=== PATIENT | male | born 1960 | race Caucasian/White ===

== ENCOUNTER 2020-11-30 18:27 | Inpatient (IN) | payer MEDICARE, OTHER ==
[~2020-11-30] VITALS: Ht 180.3 cm; Wt 155.2 kg
[2020-11-30] MEDS ORDERED: dilTIAZem 25 MG/5 ML VIAL IV ONE ×2 (19:00→19:45)
[2020-11-30 19:15] LABS: Basophils # (auto) 0 10 ^3/uL (0-0.2); Basophils % (auto) 0.1 % (0.0-2.0); Eosinophils # (auto) 0 10 ^3/uL (0-0.8); Hematocrit 36.3 % (41.0-53.0); Hemoglobin 11.9 g/dL (13.5-17.5); Lymphocytes # (auto) 0.8 10 ^3/uL (0.4-5.4); Lymphocytes % (auto) 5.2 % (10.0-50.0); Mean Corpuscular Hemoglobin 28.9 pg (28.0-32.0); Mean Corpuscular Hgb Conc. 32.8 g/dL (32.0-36.0); Mean Corpuscular Volume 88.1 fL (80.0-100.0); Monocytes # (auto) 1.7 10 ^3/uL (0-1.3); Monocytes % (auto) 10.7 % (0.0-12.0); Neutrophils # (auto) 13.4 10 ^3/uL (1.6-8.6); Red Blood Cells 4.12 10^6/uL (4.5-5.90); Red Cell Distribution Width 15.7 % (11.8-14.3); White Blood Cell 15.9 10^3/uL (4.4-10.8)
[2020-11-30 19:35] LABS: Albumin 2.7 g/dL (3.4-5.0); BUN/Creatinine Ratio 11.8; Calcium 8.9 mg/dL (8.5-10.1); Potassium 3.2 mmol/L (3.5-5.1)
[2020-11-30 19:40] LABS: Bilirubin, Total 0.6 mg/dL (0.2-1.0); Lactic Acid w/Reflex 2.1 mmol/L (0.4-2.0); Total Protein 8.2 g/dL (6.4-8.2)
[2020-11-30 20:23] LABS: INR 1.44 (0.9-1.15); Partial Thromboplastin Time 39.6 sec (23.6-33.0)
[2020-11-30] MEDS ORDERED: levoFLOXacin 500MG 100 ML IV ONE (20:30)
[2020-11-30] MEDS ORDERED: SODIUM CHLORIDE 0.9% 3,000 ML IV ONE (20:30)
[2020-11-30] MEDS ORDERED: IOHEXOL 350 MG/ML 100ML IJ ONE (20:58)
[2020-11-30] MEDS ORDERED: AMIODARONE 450mg/250ml AE 250 ML IV ONE (21:00)
[2020-11-30] MEDS ORDERED: ACETAMINOPHEN 500 MG TAB PO ONE (21:00)
[2020-11-30] MEDS ORDERED: AMIODARONE HCL (50 MG/ ML) 3 ML VIAL IV ONE (21:07)
[2020-11-30] MEDS ORDERED: AMIODARONE HCL 150 MG in D5W 5% 100 ML IV ONE (21:15)
[2020-11-30] MEDS ORDERED: AMIODARONE 450mg/250ml AE 250 ML IV SCH (21:15)
[2020-11-30] MEDS: POTASSIUM CHL 20MEQ/100ML 100 ML IV SCH (22:23)
[2020-11-30] MEDS ORDERED: FUROSEMIDE 40 MG/4 ML VIAL IV ONE (23:30)
[2020-11-30] MEDS ORDERED: MORPHINE SULFATE 4 MG/ML SYR/VIAL IV PRN (23:30)
[2020-11-30] MEDS ORDERED: ONDANSETRON HCL 4 MG/2 ML VIAL IV PRN (23:30)
[2020-11-30] MEDS ORDERED: DEXTROSE (50%) 50ML SYRG IV PRN (23:30)
[2020-11-30] MEDS ORDERED: ALBUMIN 25% 50 ML IV ONE (23:30)
[2020-11-30] MEDS ORDERED: NITROGLYCERIN 0.4 MG SL TAB SL PRN (23:30)
[2020-11-30] MEDS ORDERED: DOCUSATE SOD 100 MG CAP PO PRN (23:30)
[2020-11-30] MEDS ORDERED: MORPHINE SULFATE INJECTION 2 MG/ML SYRG IV PRN (23:30)
[2020-11-30] MEDS ORDERED: HYDROcodone-ACET 5/325MG TAB PO PRN (23:30)
[2020-12-01] MEDS: POTASSIUM CHL 20MEQ/100ML 100 ML IV SCH (00:17)
[2020-12-01] MEDS ORDERED: SODIUM CHL 3% 500 ML IV ONE (02:15)
[2020-12-01 02:45] VITALS: BP 108/51
[2020-12-01] MEDS ORDERED: SODIUM BICARBONATE 8.4 % INJ 50ML VIAL IV ONE (02:45)
[2020-12-01 03:04] VITALS: BP 108/51
[2020-12-01] MEDS: AMIODARONE 450mg/250ml AE 250 ML IV SCH ×2 (03:22→20:25)
[2020-12-01 03:46] VITALS: BP 101/66
[2020-12-01 04:08] LABS: Albumin 2.4 g/dL (3.4-5.0); Potassium 3.8 mmol/L (3.5-5.1)
[2020-12-01 04:14] LABS: Urine Bacteria MOD /hpf (None Seen); Urine Blood 2+ /uL (Negative); Urine Hyaline Cast FEW /lpf (0 - 2); Urine Mucus FEW (None Seen); Urine Specific Gravity 1.029 (1.001-1.035); Urine WBC 72 /hpf (0 - 3)
[2020-12-01 04:15] LABS: BUN/Creatinine Ratio 13.2; Bilirubin, Total 0.6 mg/dL (0.2-1.0); Calcium 8.1 mg/dL (8.5-10.1); Total Protein 7.4 g/dL (6.4-8.2)
[2020-12-01] MEDS ORDERED: ALBUMIN 25% 50 ML IV ONE (06:00)
[2020-12-01] MEDS ORDERED: ALBUTEROL SULF HFA 90MCG INH 200DOSE IN SCH (06:00)
[2020-12-01 06:26] VITALS: BP 108/68
[2020-12-01] MEDS: ACCU-CHEK COMFORT CURVE STRIP VI SCH ×4 (06:46→22:31)
[2020-12-01] MEDS: InsuLIN REG 1unit/0.01ml Soln (100units/ml) SC SCH ×4 (06:47→22:33)
[2020-12-01] MEDS: SODIUM CHLOR 0.9% PF (SALINE LOCK) 10ML VIAL/SYR IV SCH ×3 (06:47→22:18)
[2020-12-01 08:18] LABS: Basophils # (auto) 0 10 ^3/uL (0-0.2); Basophils % (auto) 0.2 % (0.0-2.0); Eosinophils # (auto) 0 10 ^3/uL (0-0.8); Hematocrit 34.6 % (41.0-53.0); Hemoglobin 11.4 g/dL (13.5-17.5); Lymphocytes # (auto) 0.4 10 ^3/uL (0.4-5.4); Lymphocytes % (auto) 3.5 % (10.0-50.0); Mean Corpuscular Hemoglobin 28.8 pg (28.0-32.0); Mean Corpuscular Hgb Conc. 32.9 g/dL (32.0-36.0); Mean Corpuscular Volume 87.6 fL (80.0-100.0); Monocytes # (auto) 0.7 10 ^3/uL (0-1.3); Monocytes % (auto) 6.2 % (0.0-12.0); Neutrophils # (auto) 10.5 10 ^3/uL (1.6-8.6); Neutrophils % (auto) 90.1 % (37.0-80.0); Red Blood Cells 3.95 10^6/uL (4.5-5.90); Red Cell Distribution Width 15.4 % (11.8-14.3); White Blood Cell 11.6 10^3/uL (4.4-10.8)
[2020-12-01 08:47] LABS: INR 1.54 (0.9-1.15)
[2020-12-01] MEDS: cefTRIAXone 1GM/50ML D5W 50 ML IV SCH (09:16)
[2020-12-01] MEDS ORDERED: ALBUTEROL SULF HFA 90MCG INH 200DOSE IN PRN (09:45)
[2020-12-01] MEDS: FAMOTIDINE (10MG/ML) 2ML VL IV SCH ×2 (10:44→22:10)
[2020-12-01] MEDS: ASPirin 81 mg TAB PO SCH (10:44)
[2020-12-01] MEDS: AZITHROMYCIN 500MG/ 250ML 250 ML IV SCH (10:44)
[2020-12-01] MEDS: POTASSIUM CHL 20 Meq TABLET PO SCH (10:45)
[2020-12-01] MEDS: ZINC SULFATE 220mg CAP or TAB PO SCH (10:45)
[2020-12-01] MEDS: MULTIPLE VITAMIN TAB PO SCH (10:46)
[2020-12-01] MEDS: FUROSEMIDE 40 MG/4 ML VIAL IV SCH (10:46)
[2020-12-01] MEDS: ASCORBIC ACID 500 MG TAB PO SCH ×2 (10:46→22:18)
[2020-12-01] MEDS ORDERED: DIGOXIN (250MCG/ML) 2 ML AMPULE IV ONE (11:00)
[2020-12-01] MEDS ORDERED: ENOXAPARIN SOD 150 MG/1 ML SYRINGE SC ONE (11:00)
[2020-12-01] MEDS ORDERED: WARFARIN SODIUM 10 MG TAB PO ONE (17:00)
[2020-12-01] MEDS: ACETAMINOPHEN 325 MG TAB PO PRN (20:53)
[2020-12-01] MEDS: ENOXAPARIN SOD 150 MG/1 ML SYRINGE SC SCH (22:10)
[2020-12-01 23:25] VITALS: BP 93/35
[2020-12-02 03:08] VITALS: BP 117/80
[2020-12-02 06:02] LABS: Basophils # (auto) 0 10 ^3/uL (0-0.2); Basophils % (auto) 0.3 % (0.0-2.0); Eosinophils # (auto) 0 10 ^3/uL (0-0.8); Eosinophils % (auto) 0.2 % (0.0-7.0); Hematocrit 32.2 % (41.0-53.0); Hemoglobin 10.9 g/dL (13.5-17.5); Lymphocytes # (auto) 0.4 10 ^3/uL (0.4-5.4); Lymphocytes % (auto) 5.4 % (10.0-50.0); Mean Corpuscular Hemoglobin 29.4 pg (28.0-32.0); Mean Corpuscular Hgb Conc. 33.7 g/dL (32.0-36.0); Mean Corpuscular Volume 87.2 fL (80.0-100.0); Monocytes # (auto) 0.7 10 ^3/uL (0-1.3); Monocytes % (auto) 8.6 % (0.0-12.0); Neutrophils % (auto) 85.5 % (37.0-80.0); Nucleated Red Blood Cells % 0.1 %; White Blood Cell 8.2 10^3/uL (4.4-10.8)
[2020-12-02] MEDS: SODIUM CHLOR 0.9% PF (SALINE LOCK) 10ML VIAL/SYR IV SCH ×3 (06:19→21:30)
[2020-12-02 06:20] LABS: INR 1.91 (0.9-1.15)
[2020-12-02 06:21] LABS: Potassium 3.4 mmol/L (3.5-5.1)
[2020-12-02 06:33] LABS: Albumin 2.5 g/dL (3.4-5.0); BUN/Creatinine Ratio 18.1; Bilirubin, Total 0.5 mg/dL (0.2-1.0); Calcium 9.4 mg/dL (8.5-10.1); Magnesium 2.4 mg/dL (1.6-2.6); Total Protein 7.5 g/dL (6.4-8.2)
[2020-12-02] MEDS: InsuLIN REG 1unit/0.01ml Soln (100units/ml) SC SCH ×4 (07:00→21:38)
[2020-12-02] MEDS: ACCU-CHEK COMFORT CURVE STRIP VI SCH ×4 (07:13→21:30)
[2020-12-02] MEDS: cefTRIAXone 1GM/50ML D5W 50 ML IV SCH (09:39)
[2020-12-02] MEDS: AMIODARONE 450mg/250ml AE 250 ML IV SCH ×3 (09:41→23:17)
[2020-12-02] MEDS: FAMOTIDINE (10MG/ML) 2ML VL IV SCH ×2 (10:01→21:30)
[2020-12-02] MEDS: FUROSEMIDE 40 MG/4 ML VIAL IV SCH ×2 (10:01→17:55)
[2020-12-02] MEDS: POTASSIUM CHL 20 Meq TABLET PO SCH (10:02)
[2020-12-02] MEDS: MULTIPLE VITAMIN TAB PO SCH (10:02)
[2020-12-02] MEDS: ZINC SULFATE 220mg CAP or TAB PO SCH (10:02)
[2020-12-02] MEDS: ASPirin 81 mg TAB PO SCH (10:02)
[2020-12-02] MEDS: ASCORBIC ACID 500 MG TAB PO SCH (10:02)
[2020-12-02] MEDS: ENOXAPARIN SOD 150 MG/1 ML SYRINGE SC SCH ×2 (10:02→21:30)
[2020-12-02] MEDS: AZITHROMYCIN 500MG/ 250ML 250 ML IV SCH (10:14)
[2020-12-02] MEDS ORDERED: POTASSIUM CHL 20 Meq TABLET PO ONE (10:30)
[2020-12-02] MEDS ORDERED: DIGOXIN (250MCG/ML) 2 ML AMPULE IV ONE (10:30)
[2020-12-02] MEDS ORDERED: AMIODARONE 450mg/250ml AE 250 ML IV SCH (14:00)
[2020-12-02] MEDS: ACETAMINOPHEN 325 MG TAB PO PRN (16:14)
[2020-12-02 17:37] VITALS: BP 129/75
[2020-12-02] MEDS ORDERED: SERT50TA19 PO (18:03)
[2020-12-02] MEDS ORDERED: AMIO200T4 PO (18:03)
[2020-12-02] MEDS ORDERED: ROSU1TAB15 PO (18:03)
[2020-12-02] MEDS ORDERED: WARF6TAB21 PO (18:03)
[2020-12-02] MEDS ORDERED: TORS20TA19 PO (18:03)
[2020-12-02] MEDS ORDERED: CHOL200031 PO (18:08)
[2020-12-02] MEDS ORDERED: ASPI81CH59 PO (18:08)
[2020-12-02] MEDS ORDERED: MECL12.514 PO (18:08)
[2020-12-02] MEDS ORDERED: LORA0.5T20 PO (18:08)
[2020-12-02] MEDS ORDERED: NITR0.4S29 SL (18:08)
[2020-12-02] MEDS ORDERED: CYAN-17 PO (18:11)
[2020-12-02] MEDS ORDERED: BECL80AE11 IN (18:11)
[2020-12-02] MEDS ORDERED: METF-370 PO (18:11)
[2020-12-02] MEDS ORDERED: ASCO500T11 PO (18:11)
[2020-12-02 22:21] VITALS: BP 129/76
[2020-12-03 05:14] VITALS: BP 110/73
[2020-12-03 05:26] LABS: Basophils # (auto) 0 10 ^3/uL (0-0.2); Basophils % (auto) 0.6 % (0.0-2.0); Eosinophils # (auto) 0.1 10 ^3/uL (0-0.8); Eosinophils % (auto) 1.1 % (0.0-7.0); Hematocrit 32.9 % (41.0-53.0); Hemoglobin 11.3 g/dL (13.5-17.5); Lymphocytes # (auto) 0.6 10 ^3/uL (0.4-5.4); Lymphocytes % (auto) 8.5 % (10.0-50.0); Mean Corpuscular Hemoglobin 29.8 pg (28.0-32.0); Mean Corpuscular Hgb Conc. 34.5 g/dL (32.0-36.0); Mean Corpuscular Volume 86.4 fL (80.0-100.0); Monocytes # (auto) 0.7 10 ^3/uL (0-1.3); Monocytes % (auto) 8.9 % (0.0-12.0); Neutrophils % (auto) 80.9 % (37.0-80.0); Nucleated Red Blood Cells % 0.1 %; Red Blood Cells 3.81 10^6/uL (4.5-5.90); Red Cell Distribution Width 15.7 % (11.8-14.3); White Blood Cell 7.5 10^3/uL (4.4-10.8)
[2020-12-03 05:46] LABS: Albumin 2.4 g/dL (3.4-5.0); Magnesium 2.4 mg/dL (1.6-2.6); Potassium 3.3 mmol/L (3.5-5.1)
[2020-12-03 05:51] LABS: Bilirubin, Total 0.6 mg/dL (0.2-1.0); Total Protein 7.6 g/dL (6.4-8.2)
[2020-12-03] MEDS: ACCU-CHEK COMFORT CURVE STRIP VI SCH ×4 (06:38→21:28)
[2020-12-03] MEDS: SODIUM CHLOR 0.9% PF (SALINE LOCK) 10ML VIAL/SYR IV SCH ×3 (06:38→21:27)
[2020-12-03] MEDS: FUROSEMIDE 40 MG/4 ML VIAL IV SCH ×2 (06:39→17:34)
[2020-12-03] MEDS: InsuLIN REG 1unit/0.01ml Soln (100units/ml) SC SCH ×4 (06:47→21:32)
[2020-12-03 09:00] VITALS: BP 136/78
[2020-12-03] MEDS: AMIODARONE 450mg/250ml AE 250 ML IV SCH ×2 (09:23→13:00)
[2020-12-03] MEDS: ENOXAPARIN SOD 150 MG/1 ML SYRINGE SC SCH ×2 (09:49→21:27)
[2020-12-03] MEDS: POTASSIUM CHL 20 Meq TABLET PO SCH (09:49)
[2020-12-03] MEDS: ASPirin 81 mg TAB PO SCH (09:49)
[2020-12-03] MEDS: FAMOTIDINE (10MG/ML) 2ML VL IV SCH ×2 (09:49→21:26)
[2020-12-03] MEDS: MULTIPLE VITAMIN TAB PO SCH (09:49)
[2020-12-03] MEDS: cefTRIAXone 1GM/50ML D5W 50 ML IV SCH (09:49)
[2020-12-03] MEDS: AZITHROMYCIN 500MG/ 250ML 250 ML IV SCH (11:04)
[2020-12-03] MEDS ORDERED: POTASSIUM CHL 20 Meq TABLET PO ONE (11:45)
[2020-12-03 13:00] VITALS: BP 136/78
[2020-12-03 17:00] VITALS: BP 122/71
[2020-12-03] MEDS: AMIODARONE HCL 200 MG TAB PO SCH (21:27)
[2020-12-03 22:00] VITALS: BP 115/58
[2020-12-04 05:00] VITALS: BP 115/76
[2020-12-04 05:30] LABS: Basophils # (auto) 0.1 10 ^3/uL (0-0.2); Basophils % (auto) 0.8 % (0.0-2.0); Eosinophils # (auto) 0.1 10 ^3/uL (0-0.8); Eosinophils % (auto) 1.6 % (0.0-7.0); Hemoglobin 10.9 g/dL (13.5-17.5); Lymphocytes # (auto) 0.7 10 ^3/uL (0.4-5.4); Lymphocytes % (auto) 10.1 % (10.0-50.0); Mean Corpuscular Hemoglobin 29.7 pg (28.0-32.0); Mean Corpuscular Hgb Conc. 34.1 g/dL (32.0-36.0); Mean Corpuscular Volume 87.2 fL (80.0-100.0); Monocytes # (auto) 0.5 10 ^3/uL (0-1.3); Monocytes % (auto) 6.6 % (0.0-12.0); Neutrophils # (auto) 5.8 10 ^3/uL (1.6-8.6); Neutrophils % (auto) 80.9 % (37.0-80.0); Nucleated Red Blood Cells % 0.1 %; Red Blood Cells 3.67 10^6/uL (4.5-5.90); Red Cell Distribution Width 15.8 % (11.8-14.3); White Blood Cell 7.1 10^3/uL (4.4-10.8)
[2020-12-04 05:53] LABS: Albumin 2.3 g/dL (3.4-5.0); Calcium 9.1 mg/dL (8.5-10.1); Potassium 3.3 mmol/L (3.5-5.1)
[2020-12-04 05:57] LABS: BUN/Creatinine Ratio 27.2; Bilirubin, Total 0.4 mg/dL (0.2-1.0); Total Protein 7.2 g/dL (6.4-8.2)
[2020-12-04] MEDS: SODIUM CHLOR 0.9% PF (SALINE LOCK) 10ML VIAL/SYR IV SCH ×3 (06:12→22:10)
[2020-12-04] MEDS: FUROSEMIDE 40 MG/4 ML VIAL IV SCH (06:13)
[2020-12-04] MEDS: ACCU-CHEK COMFORT CURVE STRIP VI SCH ×4 (06:19→22:10)
[2020-12-04] MEDS: InsuLIN REG 1unit/0.01ml Soln (100units/ml) SC SCH ×4 (06:25→22:11)
[2020-12-04 08:00] VITALS: BP 115/76
[2020-12-04] MEDS: cefTRIAXone 1GM/50ML D5W 50 ML IV SCH (08:53)
[2020-12-04 09:00] VITALS: BP 105/69
[2020-12-04] MEDS: FAMOTIDINE (10MG/ML) 2ML VL IV SCH ×2 (09:03→22:10)
[2020-12-04] MEDS: AZITHROMYCIN 500MG/ 250ML 250 ML IV SCH (09:04)
[2020-12-04] MEDS: ASPirin 81 mg TAB PO SCH (09:04)
[2020-12-04] MEDS: POTASSIUM CHL 20 Meq TABLET PO SCH (09:05)
[2020-12-04] MEDS: ENOXAPARIN SOD 150 MG/1 ML SYRINGE SC SCH ×2 (09:05→22:10)
[2020-12-04] MEDS: AMIODARONE HCL 200 MG TAB PO SCH ×2 (09:05→17:15)
[2020-12-04] MEDS: MULTIPLE VITAMIN TAB PO SCH (09:05)
[2020-12-04 13:00] VITALS: BP 106/63
[2020-12-04] MEDS ORDERED: POTASSIUM CHL 20 Meq TABLET PO ONE (13:45)
[2020-12-04 17:00] VITALS: BP 102/58
[2020-12-04 22:00] VITALS: BP 125/70
[2020-12-05 04:48] VITALS: BP 123/70
[2020-12-05] MEDS: SODIUM CHLOR 0.9% PF (SALINE LOCK) 10ML VIAL/SYR IV SCH ×3 (05:21→21:22)
[2020-12-05 06:17] LABS: BUN/Creatinine Ratio 32.1; Calcium 8.8 mg/dL (8.5-10.1); Potassium 4.1 mmol/L (3.5-5.1)
[2020-12-05] MEDS: InsuLIN REG 1unit/0.01ml Soln (100units/ml) SC SCH ×4 (06:54→21:43)
[2020-12-05] MEDS: ACCU-CHEK COMFORT CURVE STRIP VI SCH ×4 (06:56→21:22)
[2020-12-05 09:00] VITALS: BP 127/65
[2020-12-05] MEDS: FAMOTIDINE (10MG/ML) 2ML VL IV SCH ×2 (09:38→21:22)
[2020-12-05] MEDS: FUROSEMIDE 40 MG/4 ML VIAL IV SCH (09:38)
[2020-12-05] MEDS: ASPirin 81 mg TAB PO SCH (09:38)
[2020-12-05] MEDS: cefTRIAXone 1GM/50ML D5W 50 ML IV SCH (09:38)
[2020-12-05] MEDS: AMIODARONE HCL 200 MG TAB PO SCH (09:39)
[2020-12-05] MEDS: ENOXAPARIN SOD 150 MG/1 ML SYRINGE SC SCH ×2 (09:39→21:22)
[2020-12-05] MEDS: MULTIPLE VITAMIN TAB PO SCH (09:39)
[2020-12-05] MEDS: POTASSIUM CHL 20 Meq TABLET PO SCH (09:39)
[2020-12-05] MEDS: AZITHROMYCIN 500MG/ 250ML 250 ML IV SCH (10:10)
[2020-12-05 13:00] VITALS: BP 115/66
[2020-12-05 17:00] VITALS: BP 127/76
[2020-12-05 22:00] VITALS: BP 121/66
[2020-12-06 05:00] VITALS: BP 113/58
[2020-12-06 06:03] LABS: Basophils # (auto) 0.1 10 ^3/uL (0-0.2); Basophils % (auto) 0.9 % (0.0-2.0); Eosinophils # (auto) 0.1 10 ^3/uL (0-0.8); Eosinophils % (auto) 1.4 % (0.0-7.0); Hemoglobin 11.5 g/dL (13.5-17.5); Lymphocytes # (auto) 1.2 10 ^3/uL (0.4-5.4); Lymphocytes % (auto) 14.4 % (10.0-50.0); Mean Corpuscular Hemoglobin 30.3 pg (28.0-32.0); Mean Corpuscular Hgb Conc. 34.9 g/dL (32.0-36.0); Mean Corpuscular Volume 86.9 fL (80.0-100.0); Monocytes # (auto) 0.5 10 ^3/uL (0-1.3); Monocytes % (auto) 6.4 % (0.0-12.0); Neutrophils # (auto) 6.2 10 ^3/uL (1.6-8.6); Neutrophils % (auto) 76.9 % (37.0-80.0); Nucleated Red Blood Cells % 0.1 %; Red Cell Distribution Width 15.3 % (11.8-14.3); White Blood Cell 8.1 10^3/uL (4.4-10.8)
[2020-12-06] MEDS: ACCU-CHEK COMFORT CURVE STRIP VI SCH ×4 (06:18→21:19)
[2020-12-06] MEDS: SODIUM CHLOR 0.9% PF (SALINE LOCK) 10ML VIAL/SYR IV SCH ×3 (06:19→21:19)
[2020-12-06] MEDS: InsuLIN REG 1unit/0.01ml Soln (100units/ml) SC SCH ×4 (06:20→21:34)
[2020-12-06 06:34] LABS: BUN/Creatinine Ratio 28.9; Calcium 9.4 mg/dL (8.5-10.1); Potassium 3.5 mmol/L (3.5-5.1)
[2020-12-06 09:00] VITALS: BP 95/62
[2020-12-06] MEDS: cefTRIAXone 1GM/50ML D5W 50 ML IV SCH (09:44)
[2020-12-06] MEDS: ASPirin 81 mg TAB PO SCH (09:44)
[2020-12-06] MEDS: FAMOTIDINE (10MG/ML) 2ML VL IV SCH ×2 (09:44→21:19)
[2020-12-06] MEDS: AMIODARONE HCL 200 MG TAB PO SCH (09:44)
[2020-12-06] MEDS: ENOXAPARIN SOD 150 MG/1 ML SYRINGE SC SCH ×2 (09:45→21:19)
[2020-12-06] MEDS: POTASSIUM CHL 20 Meq TABLET PO SCH (09:45)
[2020-12-06] MEDS: MULTIPLE VITAMIN TAB PO SCH (09:45)
[2020-12-06] MEDS: FUROSEMIDE 40 MG/4 ML VIAL IV SCH (10:00)
[2020-12-06 13:00] VITALS: BP 115/63
[2020-12-06] MEDS ORDERED: ALBUTEROL SULF 2.5 MG/0.5ML(0.5%) NEB SOLN NEB PRN (13:30)
[2020-12-06] MEDS ORDERED: POTASSIUM CHL 20 Meq TABLET PO ONE (13:30)
[2020-12-06] MEDS ORDERED: IPRATROPIUM BROM 0.5 MG/2.5ML INH SOL NEB PRN (13:30)
[2020-12-06 13:36] VITALS: BP 95/62
[2020-12-06 17:00] VITALS: BP 93/55
[2020-12-06 22:00] VITALS: BP 112/69
[2020-12-07 05:00] VITALS: BP 111/69
[2020-12-07] MEDS: ACETAMINOPHEN 325 MG TAB PO PRN (05:42)
[2020-12-07] MEDS: SODIUM CHLOR 0.9% PF (SALINE LOCK) 10ML VIAL/SYR IV SCH ×2 (05:42→13:55)
[2020-12-07] MEDS: InsuLIN REG 1unit/0.01ml Soln (100units/ml) SC SCH ×4 (05:48→22:00)
[2020-12-07] MEDS: ACCU-CHEK COMFORT CURVE STRIP VI SCH ×3 (05:48→17:12)
[2020-12-07 09:00] VITALS: BP 123/83
[2020-12-07] MEDS: cefTRIAXone 1GM/50ML D5W 50 ML IV SCH (09:17)
[2020-12-07] MEDS: FUROSEMIDE 40 MG/4 ML VIAL IV SCH (09:52)
[2020-12-07] MEDS: FAMOTIDINE (10MG/ML) 2ML VL IV SCH (09:52)
[2020-12-07] MEDS: ASPirin 81 mg TAB PO SCH (09:52)
[2020-12-07] MEDS: ENOXAPARIN SOD 150 MG/1 ML SYRINGE SC SCH (09:53)
[2020-12-07] MEDS: AMIODARONE HCL 200 MG TAB PO SCH (09:53)
[2020-12-07] MEDS: MULTIPLE VITAMIN TAB PO SCH (09:53)
[2020-12-07] MEDS: POTASSIUM CHL 20 Meq TABLET PO SCH (09:53)
[2020-12-07 13:00] VITALS: BP 99/54
[2020-12-07 17:01] VITALS: BP 126/65
[2020-12-07 22:00] VITALS: BP 101/52
[2020-12-08] MEDS: FAMOTIDINE (10MG/ML) 2ML VL IV SCH ×3 (00:25→22:49)
[2020-12-08] MEDS: SODIUM CHLOR 0.9% PF (SALINE LOCK) 10ML VIAL/SYR IV SCH ×4 (00:25→22:49)
[2020-12-08] MEDS: ENOXAPARIN SOD 150 MG/1 ML SYRINGE SC SCH ×3 (00:25→22:50)
[2020-12-08] MEDS: ACCU-CHEK COMFORT CURVE STRIP VI SCH ×5 (00:26→22:50)
[2020-12-08 05:00] VITALS: BP 85/57
[2020-12-08] MEDS: InsuLIN REG 1unit/0.01ml Soln (100units/ml) SC SCH ×4 (06:20→22:51)
[2020-12-08 09:00] VITALS: BP 101/55
[2020-12-08] MEDS: cefTRIAXone 1GM/50ML D5W 50 ML IV SCH (09:43)
[2020-12-08] MEDS: AMIODARONE HCL 200 MG TAB PO SCH (10:10)
[2020-12-08] MEDS: POTASSIUM CHL 20 Meq TABLET PO SCH (10:15)
[2020-12-08] MEDS: MULTIPLE VITAMIN TAB PO SCH (10:15)
[2020-12-08] MEDS: ASPirin 81 mg TAB PO SCH (10:15)
[2020-12-08] MEDS: FUROSEMIDE 40 MG/4 ML VIAL IV SCH (10:16)
[2020-12-08 13:00] VITALS: BP 97/58
[2020-12-08 17:00] VITALS: BP 96/56
[2020-12-08 22:00] VITALS: BP 106/64
[2020-12-09 05:30] VITALS: BP 110/78
[2020-12-09] MEDS: SODIUM CHLOR 0.9% PF (SALINE LOCK) 10ML VIAL/SYR IV SCH ×3 (06:22→23:20)
[2020-12-09] MEDS: ACCU-CHEK COMFORT CURVE STRIP VI SCH ×4 (06:53→23:20)
[2020-12-09] MEDS: InsuLIN REG 1unit/0.01ml Soln (100units/ml) SC SCH ×4 (06:54→23:47)
[2020-12-09] MEDS: cefTRIAXone 1GM/50ML D5W 50 ML IV SCH (09:12)
[2020-12-09] MEDS: AMIODARONE HCL 200 MG TAB PO SCH (09:51)
[2020-12-09] MEDS: ASPirin 81 mg TAB PO SCH (09:51)
[2020-12-09] MEDS: FAMOTIDINE (10MG/ML) 2ML VL IV SCH ×2 (09:51→23:20)
[2020-12-09] MEDS: POTASSIUM CHL 20 Meq TABLET PO SCH (09:52)
[2020-12-09] MEDS: MULTIPLE VITAMIN TAB PO SCH (09:52)
[2020-12-09] MEDS: ENOXAPARIN SOD 150 MG/1 ML SYRINGE SC SCH ×2 (09:52→23:20)
[2020-12-09] MEDS: FUROSEMIDE 40 MG/4 ML VIAL IV SCH (10:17)
[2020-12-09 17:00] VITALS: BP 114/57
[2020-12-09 22:00] VITALS: BP 91/47
[2020-12-10 05:00] VITALS: BP 110/73
[2020-12-10] MEDS: SODIUM CHLOR 0.9% PF (SALINE LOCK) 10ML VIAL/SYR IV SCH ×2 (06:36→14:28)
[2020-12-10] MEDS: ACCU-CHEK COMFORT CURVE STRIP VI SCH ×2 (06:37→12:21)
[2020-12-10] MEDS: InsuLIN REG 1unit/0.01ml Soln (100units/ml) SC SCH ×2 (06:38→11:30)
[2020-12-10 08:51] VITALS: BP 99/42
[2020-12-10] MEDS: cefTRIAXone 1GM/50ML D5W 50 ML IV SCH (09:29)
[2020-12-10] MEDS: FUROSEMIDE 40 MG/4 ML VIAL IV SCH (09:44)
[2020-12-10] MEDS: ASPirin 81 mg TAB PO SCH (09:45)
[2020-12-10] MEDS: FAMOTIDINE (10MG/ML) 2ML VL IV SCH (09:45)
[2020-12-10] MEDS: AMIODARONE HCL 200 MG TAB PO SCH (09:45)
[2020-12-10] MEDS: POTASSIUM CHL 20 Meq TABLET PO SCH (09:46)
[2020-12-10] MEDS: MULTIPLE VITAMIN TAB PO SCH (09:46)
[2020-12-10] MEDS: ENOXAPARIN SOD 150 MG/1 ML SYRINGE SC SCH (09:46)
[2020-12-10 10:06] LABS: Basophils # (auto) 0.1 10 ^3/uL (0-0.2); Basophils % (auto) 1.1 % (0.0-2.0); Eosinophils # (auto) 0.1 10 ^3/uL (0-0.8); Eosinophils % (auto) 0.7 % (0.0-7.0); Hematocrit 33.3 % (41.0-53.0); Hemoglobin 11.1 g/dL (13.5-17.5); Lymphocytes % (auto) 14.8 % (10.0-50.0); Mean Corpuscular Hemoglobin 29.6 pg (28.0-32.0); Mean Corpuscular Hgb Conc. 33.4 g/dL (32.0-36.0); Mean Corpuscular Volume 88.5 fL (80.0-100.0); Monocytes # (auto) 0.6 10 ^3/uL (0-1.3); Monocytes % (auto) 8.4 % (0.0-12.0); Neutrophils # (auto) 5.3 10 ^3/uL (1.6-8.6); Nucleated Red Blood Cells % 0.2 %; Red Blood Cells 3.76 10^6/uL (4.5-5.90); Red Cell Distribution Width 15.7 % (11.8-14.3)
[2020-12-10 10:18] LABS: BUN/Creatinine Ratio 16.5; Calcium 9.1 mg/dL (8.5-10.1); Magnesium 2.2 mg/dL (1.6-2.6); Potassium 3.9 mmol/L (3.5-5.1)
[2020-12-10] MEDS ORDERED: AMIO400T7 PO (12:04)
[2020-12-10] MEDS ORDERED: WARFARIN SODIUM 10 MG TAB PO ONE (12:50)
[2020-12-10 13:00] VITALS: BP 107/65
[2020-12-10 13:45] LABS: INR 1.1 (0.9-1.15)
[2020-12-10 14:10] VITALS: BP 107/65
== END 2020-12-10 14:56 | disposition home or self-care (01) | DRG 871 ==
LOC: ER 18:28 → TELE 23:18 → OVERFLOW 23:55 → TELE-WESTW 12-02 17:06
PROVIDERS: ADMIT Nurse Practitioner Family; ATTEND Internal Medicine
PROC: 5A09457 Assistance with Respiratory Ventilation, 24-96 Consecutive Hours, Continuous Positive Airway Pressure (ICD-10-PCS; principal; 2020-12-01)
DX: A41.9 Sepsis, unspecified organism (principal); J15.6 Pneumonia due to other Gram-negative bacteria; J96.00 Acute respiratory failure, unspecified whether with hypoxia or hypercapnia; N17.0 Acute kidney failure with tubular necrosis; I50.23 Acute on chronic systolic (congestive) heart failure; E87.1 Hypo-osmolality and hyponatremia; D68.59 Other primary thrombophilia; D89.834 Cytokine release syndrome, grade 4; Z68.42 Body mass index [BMI] 45.0-49.9, adult; D64.9 Anemia, unspecified; E11.22 Type 2 diabetes mellitus with diabetic chronic kidney disease; E66.01 Morbid (severe) obesity due to excess calories; E78.5 Hyperlipidemia, unspecified; E87.6 Hypokalemia; Z20.822 Contact with and (suspected) exposure to COVID-19; I48.91 Unspecified atrial fibrillation; F41.9 Anxiety disorder, unspecified; R79.89 Other specified abnormal findings of blood chemistry; N18.30 Chronic kidney disease, stage 3 unspecified; Z95.1 Presence of aortocoronary bypass graft; Z90.49 Acquired absence of other specified parts of digestive tract; Z79.01 Long term (current) use of anticoagulants; Z95.2 Presence of prosthetic heart valve; Z88.8 Allergy status to other drugs, medicaments and biological substances; Z91.040 Latex allergy status
CPT/HCPCS: 36415; 36600; 71045; 71275; 80048; 80053; 81001; 82306; 82728; 82805; 82962; 83036; 83605; 83615; 83735; 83880; 84484; 85025; 85379; 85610; 85730; 86141; 87040; 87081; 87426; 93005; 93306; 93970; 94660; 96361; 96365; 96366; 96367; 96368; 96375; 96376; 97110; 97116; 97530; 99291; G0378; J0696; J1815; J1956; J3480; J3490; J7060

== ENCOUNTER → 2020-12-18 | Outpatient (CLI) | payer MEDICARE, OTHER ==
[~2020-12-18] MED LIST: AMIO400T7 PO; ASCO500T11 PO; ASPI81CH59 PO; BECL80AE11 IN; CHOL200031 PO; CYAN-17 PO; METF-370 PO; NITR0.4S29 SL; ROSU1TAB15 PO; TORS20TA19 PO; WARF6TAB21 PO
[2020-12-18 15:08] LABS: INR 2.46 (0.9-1.15); Partial Thromboplastin Time 33.9 sec (23.6-33.0)
== END | disposition home or self-care (01) ==
LOC: LAB 14:40
PROVIDERS: ATTEND Internal Medicine
DX: I48.91 Unspecified atrial fibrillation (principal)
CPT/HCPCS: 36415; 85610; 85730

== ENCOUNTER → 2021-02-18 | Outpatient (CLI) | payer MEDICARE, OTHER ==
[2021-02-18 09:36] LABS: BUN/Creatinine Ratio 21.3; Calcium 8.9 mg/dL (8.5-10.1); Potassium 3.6 mmol/L (3.5-5.1)
== END | disposition home or self-care (01) ==
LOC: LAB 08:55
PROVIDERS: ATTEND Internal Medicine
DX: E11.22 Type 2 diabetes mellitus with diabetic chronic kidney disease (principal)
CPT/HCPCS: 36415; 80048

== ENCOUNTER → 2021-03-18 | Outpatient (CLI) | payer MEDICARE, OTHER ==
[2021-03-18 10:29] LABS: Basophils # (auto) 0 10 ^3/uL (0-0.2); Basophils % (auto) 0.7 % (0.0-2.0); Eosinophils # (auto) 0.1 10 ^3/uL (0-0.8); Eosinophils % (auto) 1.5 % (0.0-7.0); Hematocrit 37.1 % (41.0-53.0); Hemoglobin 12.6 g/dL (13.5-17.5); Lymphocytes # (auto) 1.4 10 ^3/uL (0.4-5.4); Lymphocytes % (auto) 22.8 % (10.0-50.0); Mean Corpuscular Hemoglobin 29.4 pg (28.0-32.0); Mean Corpuscular Hgb Conc. 33.9 g/dL (32.0-36.0); Mean Corpuscular Volume 86.7 fL (80.0-100.0); Monocytes # (auto) 0.6 10 ^3/uL (0-1.3); Monocytes % (auto) 9.2 % (0.0-12.0); Neutrophils % (auto) 65.8 % (37.0-80.0); Nucleated Red Blood Cells % 0.2 %; Red Blood Cells 4.28 10^6/uL (4.5-5.90); Red Cell Distribution Width 15.1 % (11.8-14.3); White Blood Cell 6.1 10^3/uL (4.4-10.8)
[2021-03-18 10:32] LABS: Potassium 3.8 mmol/L (3.5-5.1)
[2021-03-18 10:45] LABS: Albumin 4.1 g/dL (3.4-5.0); BUN/Creatinine Ratio 22.8; Bilirubin, Total 0.6 mg/dL (0.2-1.0); Calcium 9.6 mg/dL (8.5-10.1); Total Protein 8.2 g/dL (6.4-8.2)
== END | disposition home or self-care (01) ==
LOC: LAB 09:01
PROVIDERS: ATTEND Student in an Organized Health Care Education/Training Program
DX: E11.22 Type 2 diabetes mellitus with diabetic chronic kidney disease (principal)
CPT/HCPCS: 36415; 80053; 82043; 83036; 85025

== ENCOUNTER → 2021-04-08 | Outpatient (CLI) | payer MEDICARE, OTHER ==
[2021-04-08 11:34] LABS: Basophils # (auto) 0 10 ^3/uL (0-0.2); Basophils % (auto) 0.8 % (0.0-2.0); Eosinophils # (auto) 0.1 10 ^3/uL (0-0.8); Eosinophils % (auto) 1.7 % (0.0-7.0); Hemoglobin 11.9 g/dL (13.5-17.5); Lymphocytes % (auto) 18.1 % (10.0-50.0); Mean Corpuscular Hemoglobin 29.6 pg (28.0-32.0); Mean Corpuscular Hgb Conc. 33.9 g/dL (32.0-36.0); Mean Corpuscular Volume 87.4 fL (80.0-100.0); Monocytes # (auto) 0.6 10 ^3/uL (0-1.3); Monocytes % (auto) 10.3 % (0.0-12.0); Neutrophils # (auto) 3.8 10 ^3/uL (1.6-8.6); Neutrophils % (auto) 69.1 % (37.0-80.0); Red Blood Cells 4.01 10^6/uL (4.5-5.90); White Blood Cell 5.5 10^3/uL (4.4-10.8)
[2021-04-08 12:20] LABS: Potassium 3.5 mmol/L (3.5-5.1)
[2021-04-08 12:39] LABS: Albumin 3.9 g/dL (3.4-5.0); BUN/Creatinine Ratio 19.4; Bilirubin, Total 0.3 mg/dL (0.2-1.0); Calcium 10.4 mg/dL (8.5-10.1)
== END | disposition home or self-care (01) ==
LOC: LAB 10:00
PROVIDERS: ATTEND Internal Medicine
DX: E11.22 Type 2 diabetes mellitus with diabetic chronic kidney disease (principal)
CPT/HCPCS: 36415; 80053; 82043; 83036; 85025

== ENCOUNTER → 2021-04-23 | Outpatient (CLI) | payer MEDICARE, OTHER | END | disposition home or self-care (01) | LOC: LAB 11:19 | PROVIDERS: ATTEND Student in an Organized Health Care Education/Training Program | DX: D50.9 Iron deficiency anemia, unspecified (principal) | CPT/HCPCS: 82274 ==

== ENCOUNTER → 2021-05-02 | Outpatient (CLI) | payer MEDICARE, OTHER ==
[~2021-05-02] VITALS: Ht 180.3 cm; Wt 158.8 kg
[~2021-05-02] MED LIST changes: +ADENOSINE 133 MG in GIVE UN-DILUTED 0 ML IV STA
== END | disposition home or self-care (01) ==
LOC: XY 08:20
PROVIDERS: ATTEND Internal Medicine
DX: I11.0 Hypertensive heart disease with heart failure (principal); I50.22 Chronic systolic (congestive) heart failure; I48.11 Longstanding persistent atrial fibrillation; I42.0 Dilated cardiomyopathy; R63.8 Other symptoms and signs concerning food and fluid intake; Z68.42 Body mass index [BMI] 45.0-49.9, adult; Z95.1 Presence of aortocoronary bypass graft; Z95.818 Presence of other cardiac implants and grafts; Z95.2 Presence of prosthetic heart valve
CPT/HCPCS: 78452; 93017; A9500; J0153

== ENCOUNTER 2021-06-19 09:45 | Emergency (ER) | payer MEDICARE, OTHER ==
[~2021-06-19] VITALS: Ht 180.3 cm; Wt 159.2 kg
[~2021-06-19 09:45] MED LIST changes: -ADENOSINE 133 MG in GIVE UN-DILUTED 0 ML IV STA
[2021-06-19 11:10] VITALS: BP 111/47
== END 2021-06-19 11:45 | disposition home or self-care (01) ==
LOC: ER 09:45
DX: I11.0 Hypertensive heart disease with heart failure (principal); I50.9 Heart failure, unspecified; E11.9 Type 2 diabetes mellitus without complications; E78.5 Hyperlipidemia, unspecified; I48.91 Unspecified atrial fibrillation; Z95.1 Presence of aortocoronary bypass graft; Z79.01 Long term (current) use of anticoagulants; Z79.82 Long term (current) use of aspirin; Z79.899 Other long term (current) drug therapy; Z88.8 Allergy status to other drugs, medicaments and biological substances; Z91.040 Latex allergy status

== ENCOUNTER → 2021-07-10 | Day surgery (SDC) | payer MEDICARE, OTHER ==
[~2021-07-10] VITALS: Ht 180.3 cm; Wt 160.1 kg
[~2021-07-10] MED LIST changes: -BECL80AE11 IN; +FURO20TA3 PO; +LOSA25TA38 PO; +POM SC; +POTA-180 PO; +PRAM0.5T2 PO; +ROSU40TA PO; +SERT50TA PO; +WARF5TAB71 PO
== END | disposition home or self-care (01) ==
LOC: CATH 06:36
PROVIDERS: ATTEND Internal Medicine
DX: R94.39 Abnormal result of other cardiovascular function study (principal); F41.9 Anxiety disorder, unspecified; I50.9 Heart failure, unspecified; Z53.8 Procedure and treatment not carried out for other reasons; Z95.1 Presence of aortocoronary bypass graft; Z20.822 Contact with and (suspected) exposure to COVID-19

== ENCOUNTER → 2021-11-19 | Outpatient (CLI) | payer MEDICARE ==
[2021-11-19 08:12] LABS: Basophils # (auto) 0.1 10 ^3/uL (0-0.2); Eosinophils # (auto) 0.2 10 ^3/uL (0-0.8); Hematocrit 34.2 % (41.0-53.0); Hemoglobin 11.3 g/dL (13.5-17.5); Lymphocytes # (auto) 1.1 10 ^3/uL (0.4-5.4); Lymphocytes % (auto) 16.1 % (10.0-50.0); Mean Corpuscular Hemoglobin 28.3 pg (28.0-32.0); Mean Corpuscular Volume 85.6 fL (80.0-100.0); Monocytes # (auto) 0.6 10 ^3/uL (0-1.3); Monocytes % (auto) 9.3 % (0.0-12.0); Neutrophils # (auto) 4.7 10 ^3/uL (1.6-8.6); Neutrophils % (auto) 70.6 % (37.0-80.0); Red Blood Cells 3.99 10^6/uL (4.5-5.90); Red Cell Distribution Width 16.6 % (11.8-14.3); White Blood Cell 6.7 10^3/uL (4.4-10.8)
[2021-11-19 08:41] LABS: Albumin 3.7 g/dL (3.4-5.0); Calcium 8.8 mg/dL (8.5-10.1); Potassium 3.8 mmol/L (3.5-5.1)
[2021-11-19 08:44] LABS: Bilirubin, Total 0.4 mg/dL (0.2-1.0); Total Protein 7.5 g/dL (6.4-8.2)
[2021-11-19 09:02] LABS: BUN/Creatinine Ratio 23.1
== END | disposition home or self-care (01) ==
LOC: LAB 08:02
PROVIDERS: ATTEND Student in an Organized Health Care Education/Training Program
DX: E11.22 Type 2 diabetes mellitus with diabetic chronic kidney disease (principal); N18.31 Chronic kidney disease, stage 3a
CPT/HCPCS: 36415; 80053; 83036; 85025

== ENCOUNTER 2022-02-17 08:37 | Emergency (ER) | payer MEDICARE ==
[~2022-02-17] VITALS: Ht 180.3 cm; Wt 163.0 kg
[2022-02-17 11:32] LABS: Basophils # (auto) 0.1 10 ^3/uL (0-0.2); Basophils % (auto) 0.9 % (0.0-2.0); Eosinophils # (auto) 0.1 10 ^3/uL (0-0.8); Eosinophils % (auto) 2.4 % (0.0-7.0); Hematocrit 35.3 % (41.0-53.0); Hemoglobin 11.5 g/dL (13.5-17.5); Lymphocytes % (auto) 15.8 % (10.0-50.0); Mean Corpuscular Hemoglobin 27.6 pg (28.0-32.0); Mean Corpuscular Hgb Conc. 32.5 g/dL (32.0-36.0); Mean Corpuscular Volume 85.1 fL (80.0-100.0); Monocytes # (auto) 0.6 10 ^3/uL (0-1.3); Monocytes % (auto) 10.1 % (0.0-12.0); Neutrophils # (auto) 4.4 10 ^3/uL (1.6-8.6); Neutrophils % (auto) 70.8 % (37.0-80.0); Nucleated Red Blood Cells % 0.1 %; Red Blood Cells 4.15 10^6/uL (4.5-5.90); Red Cell Distribution Width 16.7 % (11.8-14.3); White Blood Cell 6.2 10^3/uL (4.4-10.8)
[2022-02-17 11:46] LABS: INR 2.38 (0.9-1.15); Partial Thromboplastin Time 39.9 sec (24.6-33.4)
[2022-02-17 11:52] LABS: Albumin 3.7 g/dL (3.4-5.0); Calcium 9.2 mg/dL (8.5-10.1); Potassium 3.9 mmol/L (3.5-5.1)
[2022-02-17 11:56] LABS: BUN/Creatinine Ratio 20.5; Bilirubin, Total 0.5 mg/dL (0.2-1.0); Total Protein 7.8 g/dL (6.4-8.2)
[2022-02-17 14:07] VITALS: BP 143/66
== END 2022-02-17 14:08 | disposition home or self-care (01) ==
LOC: ER 08:37
DX: K42.9 Umbilical hernia without obstruction or gangrene (principal); E11.9 Type 2 diabetes mellitus without complications; E78.5 Hyperlipidemia, unspecified; Z88.6 Allergy status to analgesic agent; Z88.8 Allergy status to other drugs, medicaments and biological substances; Z90.49 Acquired absence of other specified parts of digestive tract
CPT/HCPCS: 36415; 74176; 80053; 83690; 85025; 85610; 85730

== ENCOUNTER → 2022-03-14 | Outpatient (CLI) | payer MEDICARE | END | disposition home or self-care (01) | LOC: LAB 10:12 | PROVIDERS: ATTEND Family Medicine | DX: D22.30 Melanocytic nevi of unspecified part of face (principal) | CPT/HCPCS: 88302 ==

== ENCOUNTER → 2022-03-14 | Outpatient (CLI) | payer MEDICARE ==
[2022-03-14 11:53] LABS: Cholesterol 135 mg/dL (< 200); HDL Cholesterol 64 mg/dL (40-59); LDL Cholesterol 72 mg/dL (< 100); Triglycerides 87 mg/dL (< 150)
== END | disposition home or self-care (01) ==
LOC: LAB 10:52
PROVIDERS: ATTEND Student in an Organized Health Care Education/Training Program
DX: I13.0 Hypertensive heart and chronic kidney disease with heart failure and stage 1 through stage 4 chronic kidney disease, or unspecified chronic kidney disease (principal); E11.22 Type 2 diabetes mellitus with diabetic chronic kidney disease; I50.9 Heart failure, unspecified; N18.2 Chronic kidney disease, stage 2 (mild); Z00.01 Encounter for general adult medical examination with abnormal findings
CPT/HCPCS: 36415; 80061; 82043; 82274; 83036

== ENCOUNTER 2022-11-25 11:08 | Inpatient (IN) | payer MEDICARE, OTHER ==
[~2022-11-25] VITALS: Ht 182.9 cm; Wt 166.0 kg
[~2022-11-25 11:08] MED LIST changes: +LOSA25TA15 PO; -LOSA25TA38 PO; -ROSU40TA PO; +ROSU40TA81 PO; +WARF-113 PO; +WARF-66 PO; -WARF5TAB71 PO; -WARF6TAB21 PO
[2022-11-25 12:55] LABS: Basophils # (auto) 0.1 10 ^3/uL (0-0.2); Eosinophils # (auto) 0.2 10 ^3/uL (0-0.8); Eosinophils % (auto) 2.7 % (0.0-7.0); Hematocrit 29.4 % (41.0-53.0); Hemoglobin 9.7 g/dL (13.5-17.5); Lymphocytes # (auto) 0.6 10 ^3/uL (0.4-5.4); Lymphocytes % (auto) 8.6 % (10.0-50.0); Mean Corpuscular Hgb Conc. 32.9 g/dL (32.0-36.0); Mean Corpuscular Volume 88.2 fL (80.0-100.0); Monocytes # (auto) 0.6 10 ^3/uL (0-1.3); Monocytes % (auto) 9.1 % (0.0-12.0); Neutrophils # (auto) 5.1 10 ^3/uL (1.6-8.6); Neutrophils % (auto) 78.6 % (37.0-80.0); Nucleated Red Blood Cells % 0.1 %; Red Blood Cells 3.33 10^6/uL (4.5-5.90); Red Cell Distribution Width 18.1 % (11.8-14.3); White Blood Cell 6.5 10^3/uL (4.4-10.8)
[2022-11-25 13:08] LABS: Alanine Aminotransferase 35 U/L (7-40); Albumin 4.1 g/dL (3.2-4.8); Alkaline Phosphatase 58 U/L (46-116); Anion Gap 5 (5-15); Aspartate Aminotransferase 19 U/L (13-40); BUN/Creatinine Ratio 14.3 (10.0-20.0); Bilirubin, Total 0.7 mg/dL (0.2-1.0); Blood Urea Nitrogen 16 mg/dL (9-23); Calcium 8.9 mg/dL (8.7-10.4); Carbon Dioxide 28 mmol/L (20-30); Chloride 108 mmol/L (98-107); Glucose 110 mg/dL (74-106); Lipase 50 U/L (12-53); Potassium 3.4 mmol/L (3.5-5.1); Sodium 141 mmol/L (136-145); Total Protein 6.4 g/dL (5.7-8.2)
[2022-11-25 13:11] LABS: INR 3.05 (0.9-1.15); Partial Thromboplastin Time 37.7 SEC (24.5-34.5); Prothrombin Time 29.8 sec (9.3-11.8)
[2022-11-25 13:50] VITALS: PULSE 52; RESP 20; O2SAT 96
[2022-11-25] MEDS ORDERED: POTASSIUM EFFERVESENT TAB 25 MEQ PO ONE (14:45)
[2022-11-25] MEDS ORDERED: PANTOPRAZOLE 40 MG/10 ML VIAL INJ IV ONE (14:45)
[2022-11-25] MEDS ORDERED: ACETAMINOPHEN 325 MG TAB PO PRN (14:45)
[2022-11-25] MEDS ORDERED: MORPHINE SULFATE INJ 2 MG/ml SYRG IV PRN (14:45)
[2022-11-25] MEDS ORDERED: NITROGLYCERIN 0.4 MG SL TAB SL PRN (14:45)
[2022-11-25 15:09] LABS: Triglycerides 113 mg/dL (< 150)
[2022-11-25 15:10] LABS: LDL Cholesterol 52 mg/dL (< 100)
[2022-11-25 15:10] LABS: Urine Bacteria NONE SEEN /hpf (None Seen); Urine Blood Negative /uL (Negative); Urine Clarity Clear (Clear); Urine Color Colorless (Yellow); Urine Protein, UAD Negative (Negative); Urine Specific Gravity 1.007 (1.001-1.035); Urine Urobilinogen Normal (Negative); Urine WBC <1 /hpf (0 - 3); Urine pH 6.5 (5.0-8.0)
[2022-11-25 15:11] LABS: Cholesterol 112 mg/dL (< 200); HDL Cholesterol 48 mg/dL (40-59)
[2022-11-25] MEDS ORDERED: DEXTROSE (50%) 50ML SYRG IV PRN (15:30)
[2022-11-25 15:40] LABS: INR 2.9 (0.9-1.15); Prothrombin Time 28.4 sec (9.3-11.8)
[2022-11-25 16:05] LABS: % Iron Saturation 12.4 % (20-55)
[2022-11-25 16:43] LABS: Platelet Estimate Adequate
[2022-11-25 16:44] LABS: Anisocytosis Moderate; Ovalocytes MODERATE
[2022-11-25 16:45] LABS: Tear Drop Cells FEW
[2022-11-25] MEDS: ACCU-CHEK COMFORT CURVE STRIP VI SCH ×2 (17:00→22:08)
[2022-11-25] MEDS: InsuLIN REG 1unit/0.01ml Soln (100units/ml) SC SCH ×2 (17:00→22:00)
[2022-11-25 18:00] VITALS: BP 134/58; PULSE 50; RESP 22; TEMP 97.7; O2SAT 91
[2022-11-25 18:30] VITALS: BP 136/62; PULSE 78; PULSE 79; RESP 20; TEMP 97.6; O2SAT 94; O2SAT 96
[2022-11-25 20:00] VITALS: PULSE 52
[2022-11-25 22:00] VITALS: BP 109/48; PULSE 50; RESP 18; TEMP 97.5; O2SAT 94
[2022-11-25] MEDS ORDERED: PRAMIPEXOLE DIHYDROCHLORIDE 0.5 MG PO SCH (22:00)
[2022-11-25] MEDS ORDERED: TORSEMIDE 20 MG TAB PO SCH (22:00)
[2022-11-25] MEDS: ATORVASTATIN 20 MG TAB PO SCH (22:11)
[2022-11-25] MEDS: ASCORBIC ACID 500 MG TAB PO SCH (22:12)
[2022-11-25] MEDS: metFORMIN HYDROCHLORIDE 500 MG TAB PO SCH (22:12)
[2022-11-25] MEDS: PRAMIPEXOLE DIHYDROCHLORIDE MO 0.25 MG TAB PO SCH (22:13)
[2022-11-25] MEDS: SERTRALINE HCL 50 MG TAB PO SCH (22:13)
[2022-11-26] MEDS ORDERED: ONDANSETRON HCL 4 MG/2 ML VIAL IV PRN (00:30)
[2022-11-26 05:00] VITALS: BP 146/73; PULSE 58; RESP 20; TEMP 97.7; O2SAT 94
[2022-11-26] MEDS: PRAMIPEXOLE DIHYDROCHLORIDE MO 0.25 MG TAB PO SCH ×3 (05:57→21:49)
[2022-11-26] MEDS: InsuLIN REG 1unit/0.01ml Soln (100units/ml) SC SCH ×4 (06:02→21:47)
[2022-11-26] MEDS: ACCU-CHEK COMFORT CURVE STRIP VI SCH ×4 (06:02→21:47)
[2022-11-26 06:11] LABS: Basophils # (auto) 0.1 10 ^3/uL (0-0.2); Basophils % (auto) 0.8 % (0.0-2.0); Eosinophils # (auto) 0.2 10 ^3/uL (0-0.8); Hematocrit 31.1 % (41.0-53.0); Hemoglobin 10.2 g/dL (13.5-17.5); Lymphocytes # (auto) 0.5 10 ^3/uL (0.4-5.4); Lymphocytes % (auto) 6.3 % (10.0-50.0); Mean Corpuscular Hemoglobin 28.9 pg (28.0-32.0); Mean Corpuscular Hgb Conc. 32.7 g/dL (32.0-36.0); Mean Corpuscular Volume 88.3 fL (80.0-100.0); Monocytes # (auto) 0.6 10 ^3/uL (0-1.3); Monocytes % (auto) 7.3 % (0.0-12.0); Neutrophils # (auto) 6.5 10 ^3/uL (1.6-8.6); Neutrophils % (auto) 83.6 % (37.0-80.0); Red Blood Cells 3.52 10^6/uL (4.5-5.90); Red Cell Distribution Width 17.9 % (11.8-14.3); White Blood Cell 7.8 10^3/uL (4.4-10.8)
[2022-11-26 06:23] LABS: Alanine Aminotransferase 34 U/L (7-40); Albumin 4.1 g/dL (3.2-4.8); Alkaline Phosphatase 59 U/L (46-116); Anion Gap 9 (5-15); Aspartate Aminotransferase 27 U/L (13-40); BUN/Creatinine Ratio 12.7 (10.0-20.0); Bilirubin, Total 1.2 mg/dL (0.2-1.0); Blood Urea Nitrogen 13 mg/dL (9-23); Carbon Dioxide 27 mmol/L (20-30); Chloride 105 mmol/L (98-107); Glucose 124 mg/dL (74-106); Potassium 3.4 mmol/L (3.5-5.1); Sodium 141 mmol/L (136-145); Total Protein 6.9 g/dL (5.7-8.2)
[2022-11-26 08:00] VITALS: BP 125/75; PULSE 54; PULSE 56; RESP 20; RESP 24; TEMP 98.5; O2SAT 96
[2022-11-26] MEDS ORDERED: PATIENTS OWN MEDICATION (Aspirin (Aspirin Low Dose) 81 MG) PO SCH (10:00)
[2022-11-26] MEDS ORDERED: ASPirin 81 mg TAB PO SCH (10:00)
[2022-11-26] MEDS ORDERED: PATIENTS OWN MEDICATION (Rosuvastatin Calcium 1 TAB) PO SCH (10:00)
[2022-11-26] MEDS ORDERED: AMIODARONE HCL 400 MG PO SCH (10:00)
[2022-11-26] MEDS: PANTOPRAZOLE 40 MG/10 ML VIAL INJ IV SCH (10:53)
[2022-11-26] MEDS: AMIODARONE HCL 200 MG TAB PO SCH (10:54)
[2022-11-26] MEDS: LOSARTAN POTASSIUM 25 MG TAB PO SCH (10:55)
[2022-11-26] MEDS: CHOLECALCIFEROL (VITD3) 2,000 UNIT CAP/TAB PO SCH (10:56)
[2022-11-26] MEDS: ASCORBIC ACID 500 MG TAB PO SCH ×2 (10:56→21:48)
[2022-11-26] MEDS: metFORMIN HYDROCHLORIDE 500 MG TAB PO SCH ×2 (10:56→21:48)
[2022-11-26] MEDS: FUROSEMIDE 20 MG TAB PO SCH (10:56)
[2022-11-26] MEDS: DOXYCYCLINE 100MG/250ML 250 ML IV SCH (12:58)
[2022-11-26] MEDS: cefTRIAXone 1GM/50ML D5W 50 ML IV SCH (12:58)
[2022-11-26 13:00] VITALS: BP 144/73; PULSE 51; RESP 23; TEMP 98.5; O2SAT 95
[2022-11-26] MEDS ORDERED: ROSU40TA81 PO (16:26)
[2022-11-26] MEDS ORDERED: SERT-206 PO (16:26)
[2022-11-26] MEDS ORDERED: AMIO400T3 PO (16:26)
[2022-11-26] MEDS ORDERED: LOSA25TA15 PO (16:26)
[2022-11-26] MEDS ORDERED: WARF-113 PO (16:26)
[2022-11-26] MEDS ORDERED: POTA-180 PO (16:26)
[2022-11-26] MEDS ORDERED: FURO20TA3 PO (16:26)
[2022-11-26] MEDS ORDERED: ASCO1TAB27 PO (16:26)
[2022-11-26] MEDS ORDERED: WARF-66 PO (16:26)
[2022-11-26] MEDS ORDERED: METF-370 PO (16:26)
[2022-11-26] MEDS ORDERED: CHOL20007 PO (16:26)
[2022-11-26] MEDS ORDERED: ASPI-543 PO (16:26)
[2022-11-26] MEDS ORDERED: PRAM0.7513 PO ×2 (16:29→16:30)
[2022-11-26 17:00] VITALS: BP 104/51; PULSE 55; RESP 22; TEMP 98.7; O2SAT 94
[2022-11-26 20:00] VITALS: PULSE 50; PULSE 55; O2SAT 99
[2022-11-26] MEDS: SERTRALINE HCL 50 MG TAB PO SCH (21:49)
[2022-11-26] MEDS: ATORVASTATIN 20 MG TAB PO SCH (21:49)
[2022-11-26 22:00] VITALS: BP 120/51; PULSE 50; RESP 20; TEMP 98; O2SAT 100
[2022-11-27] MEDS: DOXYCYCLINE 100MG/250ML 250 ML IV SCH ×2 (00:14→12:12)
[2022-11-27 05:00] VITALS: BP 110/44; PULSE 53; RESP 22; TEMP 98; O2SAT 95
[2022-11-27] MEDS: PRAMIPEXOLE DIHYDROCHLORIDE MO 0.25 MG TAB PO SCH ×2 (05:44→14:00)
[2022-11-27] MEDS: InsuLIN REG 1unit/0.01ml Soln (100units/ml) SC SCH ×3 (06:28→17:00)
[2022-11-27] MEDS: ACCU-CHEK COMFORT CURVE STRIP VI SCH ×3 (06:28→17:00)
[2022-11-27 08:00] VITALS: BP 120/52; PULSE 49; PULSE 51; RESP 22; TEMP 98; O2SAT 97
[2022-11-27] MEDS: cefTRIAXone 1GM/50ML D5W 50 ML IV SCH (09:42)
[2022-11-27] MEDS: PANTOPRAZOLE 40 MG/10 ML VIAL INJ IV SCH (09:58)
[2022-11-27] MEDS: metFORMIN HYDROCHLORIDE 500 MG TAB PO SCH (10:00)
[2022-11-27] MEDS: FUROSEMIDE 20 MG TAB PO SCH (10:00)
[2022-11-27] MEDS: LOSARTAN POTASSIUM 25 MG TAB PO SCH (10:00)
[2022-11-27] MEDS: CHOLECALCIFEROL (VITD3) 2,000 UNIT CAP/TAB PO SCH (10:00)
[2022-11-27] MEDS: ASCORBIC ACID 500 MG TAB PO SCH (10:00)
[2022-11-27] MEDS: AMIODARONE HCL 200 MG TAB PO SCH (10:00)
[2022-11-27 10:36] LABS: Hepatitis B Surface Antibody Negative (Negative)
[2022-11-27 11:10] LABS: Hepatitis C Antibody Negative (Negative)
[2022-11-27 12:00] VITALS: BP 123/69; PULSE 55; RESP 20; TEMP 98; O2SAT 92
[2022-11-27] MEDS ORDERED: DOXY-448 PO (14:18)
[2022-11-27 16:00] VITALS: BP 115/50; PULSE 53; RESP 21; TEMP 98.6; O2SAT 91
[2022-11-27 16:34] VITALS: BP 125/75; TEMP 36.7
== END 2022-11-27 17:50 | disposition home or self-care (01) | DRG 177 ==
LOC: ER 11:22 → TELE 14:44 → TELE-EAST 17:38
PROVIDERS: ADMIT Nurse Practitioner Family; ATTEND Nurse Practitioner Acute Care
DX: J15.6 Pneumonia due to other Gram-negative bacteria (principal); J96.01 Acute respiratory failure with hypoxia; K92.2 Gastrointestinal hemorrhage, unspecified; I50.40 Unspecified combined systolic (congestive) and diastolic (congestive) heart failure; R04.2 Hemoptysis; Z68.42 Body mass index [BMI] 45.0-49.9, adult; I11.0 Hypertensive heart disease with heart failure; E11.9 Type 2 diabetes mellitus without complications; D64.9 Anemia, unspecified; E87.6 Hypokalemia; E78.5 Hyperlipidemia, unspecified; G47.33 Obstructive sleep apnea (adult) (pediatric); I48.0 Paroxysmal atrial fibrillation; E66.01 Morbid (severe) obesity due to excess calories; F41.9 Anxiety disorder, unspecified; I25.10 Atherosclerotic heart disease of native coronary artery without angina pectoris; Z79.01 Long term (current) use of anticoagulants; Z95.1 Presence of aortocoronary bypass graft; Z95.2 Presence of prosthetic heart valve; Z88.8 Allergy status to other drugs, medicaments and biological substances; Z91.040 Latex allergy status; Z71.3 Dietary counseling and surveillance
CPT/HCPCS: 36415; 71045; 71250; 74176; 80053; 80061; 81001; 82962; 83036; 83540; 83550; 83690; 83880; 84443; 85025; 85610; 85730; 86706; 86803; 86850; 86900; 86901; 93005; 96374; C9113; G0378; J0696; J3490

== ENCOUNTER 2023-05-05 09:03 | Day surgery (SDC) | payer MEDICARE, OTHER ==
[2023-04-29 09:25] LABS: Basophils # (auto) 0 10 ^3/uL (0-0.2); Basophils % (auto) 0.4 % (0.0-2.0); Eosinophils # (auto) 0.1 10 ^3/uL (0-0.8); Eosinophils % (auto) 2.4 % (0.0-7.0); Hematocrit 37.9 % (41.0-53.0); Hemoglobin 12.3 g/dL (13.5-17.5); Lymphocytes # (auto) 0.6 10 ^3/uL (0.4-5.4); Lymphocytes % (auto) 9.8 % (10.0-50.0); Mean Corpuscular Hemoglobin 29.2 pg (28.0-32.0); Mean Corpuscular Hgb Conc. 32.5 g/dL (32.0-36.0); Mean Corpuscular Volume 89.9 fL (80.0-100.0); Monocytes # (auto) 0.7 10 ^3/uL (0-1.3); Neutrophils # (auto) 4.7 10 ^3/uL (1.6-8.6); Neutrophils % (auto) 76.4 % (37.0-80.0); Nucleated Red Blood Cells % 0.1 %; Red Blood Cells 4.22 10^6/uL (4.5-5.90); Red Cell Distribution Width 15.7 % (11.8-14.3); White Blood Cell 6.2 10^3/uL (4.4-10.8)
[2023-04-29 09:46] LABS: INR 1.35 (0.9-1.15); Partial Thromboplastin Time 29.8 SEC (24.5-34.5); Prothrombin Time 13.9 sec (9.3-11.8)
[2023-04-29 10:16] LABS: Alanine Aminotransferase 57 U/L (7-40); Albumin 4.5 g/dL (3.2-4.8); Alkaline Phosphatase 62 U/L (46-116); Anion Gap 5 (5-15); Aspartate Aminotransferase 39 U/L (13-40); BUN/Creatinine Ratio 14.3 (10.0-20.0); Bilirubin, Total 0.4 mg/dL (0.2-1.0); Blood Urea Nitrogen 16 mg/dL (9-23); Calcium 9.5 mg/dL (8.5-10.1); Carbon Dioxide 30 mmol/L (20-30); Chloride 106 mmol/L (98-107); Glucose 99 mg/dL (74-106); Potassium 4.1 mmol/L (3.5-5.1); Sodium 141 mmol/L (136-145); Total Protein 7.4 g/dL (5.7-8.2)
[~2023-05-05] VITALS: Ht 182.9 cm; Wt 163.3 kg
[~2023-05-05 09:03] MED LIST changes: +AMIO400T3 PO; -AMIO400T7 PO; +ASCO1TAB27 PO; -ASCO500T11 PO; +ASPI-543 PO; -ASPI81CH59 PO; -CHOL200031 PO; +CHOL500014 PO; +DOCU-94 PO; +FER325T PO; +FLUMAZENIL 0.1 MG/ML INJ 10ML MDV IV ONE; +MIDAZOLAM HCL 5 MG/ML-1ML VIAL ONE; +NALOXONE HCL 0.4 MG/ML VIAL ONE; -POM SC; -PRAM0.5T2 PO; +PRAM0.7513 PO; -ROSU1TAB15 PO; +SERT-206 PO; -SERT50TA PO; +SODIUM CHLORIDE LOCK 10 ML ONE; -TORS20TA19 PO; +diphenhdrAMINE HCL 50 MG/1 ML VL ONE; +fentaNYL CITRATE 100 MCG/2 ML VL ONE
[2023-05-05] MEDS ORDERED: PROPOFOL 10 MG/ML 20 ML IV ONE (11:51)
[2023-05-05] MEDS ORDERED: LIDOCAINE 1% INJ PF 5ML AMP ONE (11:52)
[2023-05-05 12:15] VITALS: TEMP 97.8; O2SAT 99
[2023-05-05 12:40] VITALS: BP 123/64; PULSE 51; RESP 14; O2SAT 96
== END 2023-05-05 13:00 | disposition home or self-care (01) ==
LOC: GI 09:03
PROVIDERS: ATTEND Internal Medicine Gastroenterology
DX: K62.5 Hemorrhage of anus and rectum (principal); K63.5 Polyp of colon; K64.8 Other hemorrhoids; I11.0 Hypertensive heart disease with heart failure; I50.9 Heart failure, unspecified; E11.9 Type 2 diabetes mellitus without complications; F41.9 Anxiety disorder, unspecified; G47.30 Sleep apnea, unspecified; E66.9 Obesity, unspecified; Z68.42 Body mass index [BMI] 45.0-49.9, adult; Z79.82 Long term (current) use of aspirin; Z79.84 Long term (current) use of oral hypoglycemic drugs; Z79.01 Long term (current) use of anticoagulants; Z79.899 Other long term (current) drug therapy; Z95.1 Presence of aortocoronary bypass graft; Z98.890 Other specified postprocedural states; Z88.8 Allergy status to other drugs, medicaments and biological substances; Z91.040 Latex allergy status
CPT/HCPCS: 36415; 45380; 45385; 80053; 82962; 85025; 85610; 85730; 88305; J1200; J2250; J2704; J3010; J7030

== ENCOUNTER → 2023-07-06 | Outpatient (CLI) | payer MEDICARE, OTHER ==
[~2023-07-06] MED LIST changes: -FLUMAZENIL 0.1 MG/ML INJ 10ML MDV IV ONE; +LOSA-533 PO; -LOSA25TA15 PO; -MIDAZOLAM HCL 5 MG/ML-1ML VIAL ONE; -NALOXONE HCL 0.4 MG/ML VIAL ONE; -SODIUM CHLORIDE LOCK 10 ML ONE; -diphenhdrAMINE HCL 50 MG/1 ML VL ONE; -fentaNYL CITRATE 100 MCG/2 ML VL ONE
[2023-07-06 11:18] LABS: Triglycerides 92 mg/dL (< 150)
[2023-07-06 11:19] LABS: LDL Cholesterol 57 mg/dL (< 100)
[2023-07-06 11:20] LABS: Cholesterol 123 mg/dL (< 200); HDL Cholesterol 51 mg/dL (40-59)
== END | disposition home or self-care (01) ==
LOC: LAB 10:02
PROVIDERS: ATTEND Internal Medicine
DX: E11.22 Type 2 diabetes mellitus with diabetic chronic kidney disease (principal); N18.9 Chronic kidney disease, unspecified; E78.5 Hyperlipidemia, unspecified; E55.9 Vitamin D deficiency, unspecified
CPT/HCPCS: 36415; 80061; 82306; 83036

== ENCOUNTER → 2023-07-13 | Outpatient (CLI) | payer MEDICARE, OTHER | END | disposition home or self-care (01) | LOC: XYW 07:22 | PROVIDERS: ATTEND Student in an Organized Health Care Education/Training Program | DX: I07.1 Rheumatic tricuspid insufficiency (principal); I50.22 Chronic systolic (congestive) heart failure; Z95.1 Presence of aortocoronary bypass graft; Z95.0 Presence of cardiac pacemaker; Z95.3 Presence of xenogenic heart valve | CPT/HCPCS: 93306 ==

== ENCOUNTER → 2023-09-23 | Outpatient (CLI) | payer MEDICARE ==
[2023-09-23 10:57] LABS: Prothrombin Time 47.1 sec (9.3-11.8)
[2023-09-23 14:12] LABS: INR 5.01 (0.9-1.15)
== END | disposition home or self-care (01) ==
LOC: LAB 09:56
PROVIDERS: ATTEND Physician Assistant
DX: I48.0 Paroxysmal atrial fibrillation (principal); Z79.01 Long term (current) use of anticoagulants
CPT/HCPCS: 36415; 85610

== ENCOUNTER → 2023-11-30 | Outpatient (CLI) | payer MEDICARE ==
[2023-11-30 09:13] LABS: Basophils # (auto) 0 10 ^3/uL (0-0.2); Basophils % (auto) 0.9 % (0.0-2.0); Eosinophils # (auto) 0.1 10 ^3/uL (0-0.8); Eosinophils % (auto) 1.9 % (0.0-7.0); Hematocrit 30.2 % (41.0-53.0); Hemoglobin 9.8 g/dL (13.5-17.5); Lymphocytes # (auto) 0.4 10 ^3/uL (0.4-5.4); Lymphocytes % (auto) 7.1 % (10.0-50.0); Mean Corpuscular Hemoglobin 31.9 pg (28.0-32.0); Mean Corpuscular Hgb Conc. 32.6 g/dL (32.0-36.0); Monocytes # (auto) 0.4 10 ^3/uL (0-1.3); Monocytes % (auto) 7.2 % (0.0-12.0); Neutrophils # (auto) 4.3 10 ^3/uL (1.6-8.6); Neutrophils % (auto) 82.9 % (37.0-80.0); Platelet Count (auto) 140 10^3/uL (140-450); Red Blood Cells 3.09 10^6/uL (4.5-5.90); Red Cell Distribution Width 19.7 % (11.8-14.3); White Blood Cell 5.2 10^3/uL (4.4-10.8)
[2023-11-30 10:23] LABS: Alanine Aminotransferase 35 U/L (7-40); Alkaline Phosphatase 57 U/L (46-116); Anion Gap 9 (5-15); Calcium 9.6 mg/dL (8.7-10.4); Carbon Dioxide 25 mmol/L (20-31); Chloride 109 mmol/L (98-107); Potassium 4.4 mmol/L (3.5-5.1); Sodium 143 mmol/L (136-145)
[2023-11-30 10:24] LABS: BUN/Creatinine Ratio 17.4 (10.0-20.0); Blood Urea Nitrogen 21 mg/dL (9-23); Glucose 113 mg/dL (74-106); Triglycerides 85 mg/dL (< 150)
[2023-11-30 10:25] LABS: Albumin 4.3 g/dL (3.2-4.8); Aspartate Aminotransferase 21 U/L (13-40); LDL Cholesterol 50 mg/dL (< 100)
[2023-11-30 10:26] LABS: Bilirubin, Total 1.2 mg/dL (0.2-1.0); Cholesterol 108 mg/dL (< 200); HDL Cholesterol 45 mg/dL (40-59); Total Protein 6.8 g/dL (5.7-8.2)
== END | disposition home or self-care (01) ==
LOC: LAB 08:27
PROVIDERS: ATTEND Internal Medicine
DX: I10 Essential (primary) hypertension (principal); R07.9 Chest pain, unspecified; I50.22 Chronic systolic (congestive) heart failure; Z79.899 Other long term (current) drug therapy
CPT/HCPCS: 36415; 80053; 80061; 82306; 83036; 84439; 84443; 85025

== ENCOUNTER 2023-12-08 10:30 | Inpatient (IN) | payer MEDICARE, OTHER ==
[~2023-12-08] VITALS: Ht 182.9 cm; Wt 162.0 kg
[~2023-12-08 10:30] MED LIST changes: +AMIO200T13 PO; +AMOX500T86 PO; +PANT40TA57 PO; +PRAM0.373 PO
[2023-12-08 11:11] VITALS: PULSE 65; RESP 26; O2SAT 94
[2023-12-08 11:16] LABS: Basophils # (auto) 0.1 10 ^3/uL (0-0.2); Basophils % (auto) 1.1 % (0.0-2.0); Eosinophils # (auto) 0.1 10 ^3/uL (0-0.8); Eosinophils % (auto) 1.3 % (0.0-7.0); Hematocrit 31.7 % (41.0-53.0); Hemoglobin 10.3 g/dL (13.5-17.5); Lymphocytes # (auto) 0.5 10 ^3/uL (0.4-5.4); Mean Corpuscular Hgb Conc. 32.4 g/dL (32.0-36.0); Mean Corpuscular Volume 98.9 fL (80.0-100.0); Monocytes # (auto) 0.4 10 ^3/uL (0-1.3); Monocytes % (auto) 6.7 % (0.0-12.0); Neutrophils # (auto) 5.1 10 ^3/uL (1.6-8.6); Neutrophils % (auto) 82.9 % (37.0-80.0); Nucleated Red Blood Cells % 0.1 %; Platelet Count (auto) 169 10^3/uL (140-450); Red Blood Cells 3.21 10^6/uL (4.5-5.90); Red Cell Distribution Width 20.2 % (11.8-14.3); White Blood Cell 6.2 10^3/uL (4.4-10.8)
[2023-12-08] MEDS: FUROSEMIDE 40 MG/4 ML VIAL IV ONE (11:19)
[2023-12-08 11:31] LABS: Chloride 109 mmol/L (98-107); Potassium 4.2 mmol/L (3.5-5.1); Sodium 140 mmol/L (136-145)
[2023-12-08 11:32] LABS: Anion Gap 5 (5-15); Calcium 9.7 mg/dL (8.7-10.4); Carbon Dioxide 26 mmol/L (20-31)
[2023-12-08 11:37] LABS: BUN/Creatinine Ratio 17.1 (10.0-20.0); Blood Urea Nitrogen 22 mg/dL (9-23); Glucose 106 mg/dL (74-106)
[2023-12-08 13:11] LABS: Urine Bacteria None Seen /hpf (None Seen)
[2023-12-08 13:42] LABS: Urine Blood Negative /uL (Negative); Urine Clarity Clear (Clear); Urine Color Colorless (Yellow); Urine Protein, UAD Negative (Negative); Urine Specific Gravity 1.006 (1.001-1.035); Urine Urobilinogen Normal (Negative); Urine WBC <1 /hpf (0 - 3)
[2023-12-08 13:59] LABS: COVID19 ANTIGEN SOFIA FIA NEGATIVE (NEGATIVE)
[2023-12-08 14:00] LABS: Rapid Influenza A Negative (Negative); Rapid Influenza B Negative (Negative)
[2023-12-08] MEDS ORDERED: MORPHINE SULFATE INJ 2 MG/ml SYRG IV PRN ×2 (15:00)
[2023-12-08] MEDS ORDERED: NITROGLYCERIN 0.4 MG SL TAB SL PRN (15:00)
[2023-12-08] MEDS ORDERED: HYDROcodone-ACET 5/325MG TAB PO PRN (15:00)
[2023-12-08] MEDS ORDERED: ONDANSETRON HCL 4 MG/2 ML VIAL IV PRN (15:00)
[2023-12-08] MEDS ORDERED: NIFE1TAB31 PO (15:09)
[2023-12-08] MEDS: FUROSEMIDE 20 MG/2 ML VIAL IV SCH (18:25)
[2023-12-08 18:30] VITALS: BP 113/66; PULSE 66; RESP 18; TEMP 97.9; O2SAT 91
[2023-12-08 20:00] VITALS: PULSE 63; PULSE 67; RESP 19; O2SAT 93
[2023-12-08 20:28] LABS: INR 1.93 (0.9-1.15); Prothrombin Time 19.5 sec (9.3-11.8)
[2023-12-08 21:00] VITALS: BP 119/67; PULSE 63; RESP 19; TEMP 97.6; O2SAT 93
[2023-12-08] MEDS: hydrALAZINE HCL 25 MG TAB PO SCH (22:00)
[2023-12-08] MEDS: FERROUS SULFATE 325mg EC TAB PO SCH (22:08)
[2023-12-08] MEDS: CARVEDILOL 3.125 MG TAB PO SCH (22:09)
[2023-12-09] VITALS (8 sets, daily range): BP systolic 102–119; BP diastolic 55–72; PULSE 63–73; RESP 18–22; TEMP 97.6–98.2; O2SAT 92–96
[2023-12-09] MEDS: Rosuvastatin Calcium (Crestor) 40MG TABLET PO SCH (09:22)
[2023-12-09] MEDS: DOCUSATE SOD 100 MG CAP PO SCH (09:23)
[2023-12-09] MEDS: FERROUS SULFATE 325mg EC TAB PO SCH (09:23)
[2023-12-09] MEDS: AMIODARONE HCL 200 MG TAB PO SCH (09:24)
[2023-12-09] MEDS: POTASSIUM CHL 20 Meq TABLET PO SCH (09:24)
[2023-12-09] MEDS: ISOSORBIDE MONONITRATE ER 60 MG TAB PO SCH (09:25)
[2023-12-09] MEDS: ASPirin-EC 81 mg tab PO SCH (09:25)
[2023-12-09] MEDS: SERTRALINE HCL 50 MG TAB PO SCH (09:26)
[2023-12-09] MEDS ORDERED: ENOXAPARIN SOD 40 MG/0.4 ML SYRINGE SC SCH (10:00)
[2023-12-09] MEDS ORDERED: EMPAGLIFLOZIN 10 MG TAB PO SCH (10:00)
[2023-12-09] MEDS ORDERED: LOSARTAN POTASSIUM 25 MG TAB PO SCH (10:00)
[2023-12-09 10:02] LABS: Basophils # (auto) 0 10 ^3/uL (0-0.2); Basophils % (auto) 0.7 % (0.0-2.0); Eosinophils # (auto) 0.1 10 ^3/uL (0-0.8); Eosinophils % (auto) 1.2 % (0.0-7.0); Hematocrit 29.5 % (41.0-53.0); Hemoglobin 9.8 g/dL (13.5-17.5); Lymphocytes # (auto) 0.4 10 ^3/uL (0.4-5.4); Lymphocytes % (auto) 6.2 % (10.0-50.0); Mean Corpuscular Hemoglobin 32.4 pg (28.0-32.0); Mean Corpuscular Hgb Conc. 33.3 g/dL (32.0-36.0); Mean Corpuscular Volume 97.4 fL (80.0-100.0); Monocytes # (auto) 0.4 10 ^3/uL (0-1.3); Monocytes % (auto) 6.4 % (0.0-12.0); Neutrophils # (auto) 5.4 10 ^3/uL (1.6-8.6); Neutrophils % (auto) 85.5 % (37.0-80.0); Platelet Count (auto) 150 10^3/uL (140-450); Red Blood Cells 3.03 10^6/uL (4.5-5.90); Red Cell Distribution Width 19.1 % (11.8-14.3); White Blood Cell 6.3 10^3/uL (4.4-10.8)
[2023-12-09 10:37] LABS: Alanine Aminotransferase 32 U/L (7-40); Alkaline Phosphatase 58 U/L (46-116); Anion Gap 6 (5-15); Aspartate Aminotransferase 21 U/L (13-40); BUN/Creatinine Ratio 16.4 (10.0-20.0); Blood Urea Nitrogen 19 mg/dL (9-23); Calcium 9.6 mg/dL (8.7-10.4); Carbon Dioxide 29 mmol/L (20-31); Chloride 106 mmol/L (98-107); Glucose 105 mg/dL (74-106); Potassium 4.1 mmol/L (3.5-5.1); Sodium 141 mmol/L (136-145)
[2023-12-09 10:38] LABS: Total Protein 6.6 g/dL (5.7-8.2)
[2023-12-09 12:04] LABS: % Iron Saturation 17.4 % (20-55)
[2023-12-09 12:49] LABS: INR 1.91 (0.9-1.15); Partial Thromboplastin Time 29.6 SEC (24.5-34.5); Prothrombin Time 19.3 sec (9.3-11.8)
[2023-12-09] MEDS ORDERED: WARFARIN SODIUM 5 MG TAB PO SCH (17:00)
[2023-12-09] MEDS: WARFARIN SODIUM 5 MG TAB PO ONE (17:41)
[2023-12-09] MEDS: FUROSEMIDE 20 MG/2 ML VIAL IV SCH (17:43)
[2023-12-09] MEDS: ATORVASTATIN 20 MG TAB PO SCH (22:44)
[2023-12-10] VITALS (8 sets, daily range): BP systolic 90–133; BP diastolic 44–70; PULSE 50–75; RESP 19–20; TEMP 97–98.7; O2SAT 90–96
[2023-12-10 10:28] LABS: Basophils # (auto) 0 10 ^3/uL (0-0.2); Basophils % (auto) 0.6 % (0.0-2.0); Eosinophils # (auto) 0.1 10 ^3/uL (0-0.8); Eosinophils % (auto) 1.3 % (0.0-7.0); Hematocrit 30.6 % (41.0-53.0); Hemoglobin 10.1 g/dL (13.5-17.5); Lymphocytes # (auto) 0.4 10 ^3/uL (0.4-5.4); Lymphocytes % (auto) 5.9 % (10.0-50.0); Mean Corpuscular Hemoglobin 32.2 pg (28.0-32.0); Mean Corpuscular Hgb Conc. 32.9 g/dL (32.0-36.0); Mean Corpuscular Volume 97.9 fL (80.0-100.0); Monocytes # (auto) 0.5 10 ^3/uL (0-1.3); Monocytes % (auto) 7.1 % (0.0-12.0); Neutrophils # (auto) 5.7 10 ^3/uL (1.6-8.6); Neutrophils % (auto) 85.1 % (37.0-80.0); Platelet Count (auto) 146 10^3/uL (140-450); Red Blood Cells 3.13 10^6/uL (4.5-5.90); Red Cell Distribution Width 19.3 % (11.8-14.3); White Blood Cell 6.7 10^3/uL (4.4-10.8)
[2023-12-10 10:33] LABS: Chloride 106 mmol/L (98-107); Potassium 3.6 mmol/L (3.5-5.1); Sodium 142 mmol/L (136-145)
[2023-12-10 10:34] LABS: Anion Gap 6 (5-15); Calcium 9.7 mg/dL (8.7-10.4); Carbon Dioxide 30 mmol/L (20-31)
[2023-12-10 10:39] LABS: BUN/Creatinine Ratio 16.8 (10.0-20.0); Blood Urea Nitrogen 19 mg/dL (9-23); Glucose 134 mg/dL (74-106)
[2023-12-10 10:45] LABS: INR 1.96 (0.9-1.15); Partial Thromboplastin Time 29.8 SEC (24.5-34.5); Prothrombin Time 19.8 sec (9.3-11.8)
[2023-12-10] MEDS: WARFARIN SODIUM 5 MG TAB PO ONE (18:08)
[2023-12-10] MEDS: MAGNESIUM OXIDE 400 MG TAB PO SCH (21:16)
[2023-12-11 01:00] VITALS: BP 96/50; PULSE 61; RESP 20; TEMP 97.7; O2SAT 97
[2023-12-11 05:00] VITALS: BP 110/60; PULSE 66; RESP 21; TEMP 97.7; O2SAT 91
[2023-12-11 07:27] LABS: Basophils # (auto) 0 10 ^3/uL (0-0.2); Eosinophils # (auto) 0.1 10 ^3/uL (0-0.8); Eosinophils % (auto) 2.2 % (0.0-7.0); Hemoglobin 10.4 g/dL (13.5-17.5); Lymphocytes # (auto) 0.5 10 ^3/uL (0.4-5.4); Lymphocytes % (auto) 10.5 % (10.0-50.0); Mean Corpuscular Hemoglobin 32.6 pg (28.0-32.0); Mean Corpuscular Hgb Conc. 33.6 g/dL (32.0-36.0); Mean Corpuscular Volume 97.1 fL (80.0-100.0); Monocytes # (auto) 0.5 10 ^3/uL (0-1.3); Monocytes % (auto) 10.2 % (0.0-12.0); Neutrophils % (auto) 76.1 % (37.0-80.0); Platelet Count (auto) 151 10^3/uL (140-450); Red Blood Cells 3.19 10^6/uL (4.5-5.90); White Blood Cell 5.2 10^3/uL (4.4-10.8)
[2023-12-11 07:35] LABS: INR 2.37 (0.9-1.15); Prothrombin Time 23.6 sec (9.3-11.8)
[2023-12-11 08:00] VITALS: PULSE 55; PULSE 62; RESP 20; O2SAT 97
[2023-12-11 08:54] VITALS: BP 154/88; PULSE 55; RESP 20; TEMP 98.2; O2SAT 97
[2023-12-11] MEDS ORDERED: HYDR25TA87 PO (09:36)
[2023-12-11] MEDS ORDERED: CARV-214 PO (09:36)
[2023-12-11] MEDS ORDERED: ISO60SRT PO (09:36)
[2023-12-11] MEDS ORDERED: HYDR-2792 PO (09:46)
[2023-12-11] MEDS ORDERED: EMPA1TAB PO (09:48)
[2023-12-11 13:00] VITALS: BP 104/65; PULSE 63; RESP 20; TEMP 98; O2SAT 92
[2023-12-11] MEDS ORDERED: WARFARIN SODIUM 2.5 MG TAB PO ONE (17:00)
[2023-12-11] MEDS ORDERED: FUROSEMIDE 20 MG/2 ML VIAL IV SCH (18:00)
== END 2023-12-11 15:23 | disposition home or self-care (01) | DRG 291 ==
LOC: ER 10:30 → TELE 15:09 → TELE-WESTW 17:28
PROVIDERS: ADMIT Internal Medicine; ATTEND Internal Medicine
DX: I11.0 Hypertensive heart disease with heart failure (principal); I50.23 Acute on chronic systolic (congestive) heart failure; J96.21 Acute and chronic respiratory failure with hypoxia; D68.69 Other thrombophilia; Z68.41 Body mass index [BMI] 40.0-44.9, adult; Z20.822 Contact with and (suspected) exposure to COVID-19; E11.9 Type 2 diabetes mellitus without complications; I25.10 Atherosclerotic heart disease of native coronary artery without angina pectoris; F41.9 Anxiety disorder, unspecified; E78.5 Hyperlipidemia, unspecified; I48.91 Unspecified atrial fibrillation; E66.01 Morbid (severe) obesity due to excess calories; D50.9 Iron deficiency anemia, unspecified; I07.1 Rheumatic tricuspid insufficiency; I50.82 Biventricular heart failure; Z82.49 Family history of ischemic heart disease and other diseases of the circulatory system; Z88.8 Allergy status to other drugs, medicaments and biological substances; Z91.040 Latex allergy status; Z95.1 Presence of aortocoronary bypass graft; Z86.718 Personal history of other venous thrombosis and embolism; Z79.899 Other long term (current) drug therapy; Z79.82 Long term (current) use of aspirin; Z79.01 Long term (current) use of anticoagulants; Z79.84 Long term (current) use of oral hypoglycemic drugs; Z90.49 Acquired absence of other specified parts of digestive tract; Z80.1 Family history of malignant neoplasm of trachea, bronchus and lung
CPT/HCPCS: 36415; 71045; 76604; 80048; 80053; 81001; 82607; 82728; 82962; 83540; 83550; 83735; 83880; 84443; 84484; 85025; 85610; 85730; 87426; 87804; 93005; 93306; 93925; 97163; 99291; G0378

== ENCOUNTER → 2024-01-04 | Outpatient (CLI) | payer MEDICARE ==
[~2024-01-04] MED LIST changes: -AMIO400T3 PO; -AMOX500T86 PO; +CARV-214 PO; +EMPA1TAB PO; +HYDR-2792 PO; +ISO60SRT PO; +NIFE1TAB31 PO; -PRAM0.7513 PO; -WARF-113 PO
[2024-01-04 08:13] LABS: Anion Gap 8 (5-15); Carbon Dioxide 25 mmol/L (20-31); Chloride 110 mmol/L (98-107); Potassium 4.1 mmol/L (3.5-5.1); Sodium 143 mmol/L (136-145)
[2024-01-04 08:14] LABS: Calcium 9.8 mg/dL (8.7-10.4)
[2024-01-04 08:19] LABS: BUN/Creatinine Ratio 18.4 (10.0-20.0); Blood Urea Nitrogen 21 mg/dL (9-23); Glucose 114 mg/dL (74-106)
== END | disposition home or self-care (01) ==
LOC: LAB 06:49
PROVIDERS: ATTEND Internal Medicine
DX: I11.0 Hypertensive heart disease with heart failure (principal); I50.22 Chronic systolic (congestive) heart failure
CPT/HCPCS: 36415; 80048; 83880

== ENCOUNTER → 2024-01-11 | Outpatient (CLI) | payer MEDICARE ==
[2024-01-11 09:59] LABS: Calcium 9.8 mg/dL (8.7-10.4); Chloride 107 mmol/L (98-107); Potassium 3.9 mmol/L (3.5-5.1); Sodium 142 mmol/L (136-145)
[2024-01-11 10:00] LABS: Anion Gap 8 (5-15); Carbon Dioxide 27 mmol/L (20-31)
[2024-01-11 10:05] LABS: BUN/Creatinine Ratio 17.6 (10.0-20.0); Blood Urea Nitrogen 24 mg/dL (9-23); Glucose 104 mg/dL (74-106)
== END | disposition home or self-care (01) ==
LOC: LAB 09:25
PROVIDERS: ATTEND Internal Medicine
DX: I11.0 Hypertensive heart disease with heart failure (principal); I50.22 Chronic systolic (congestive) heart failure; E11.65 Type 2 diabetes mellitus with hyperglycemia; R26.2 Difficulty in walking, not elsewhere classified
CPT/HCPCS: 36415; 80048

== ENCOUNTER → 2024-05-04 | Outpatient (CLI) | payer MEDICARE, OTHER ==
[~2024-05-04] VITALS: Ht 182.9 cm; Wt 159.2 kg
[2024-05-04] MEDS: REGADENOSON 0.4 MG/5 ML SYRG IV ONE (12:38)
--- NOTE | 2024-05-05 13:23 | DVHSR ---
APPROVED REPORT Exam: Nuclear Stress Test Indication: Chest pain BMI: 0 Medical History Medical History: CABG, DM, A-fib, CHF, Home o2, Aortic valve replacement Stress Test Details Stress Test: Pharmacologic stress testing performed using 0.4 mg of regadenoson per 5 mL given IV ov er 10 seconds. HR Resting HR: 67 bpmMax Heart Rate (APMHR): 156.278637 bpm Max HR Achieved: 82 bpmTarget HR (85% APMHR): 132.684171 bpm % of APMHR: 52.56 Recovery HR: 70 bpm BP Resting BP: 132/78 mmHg Recovery BP: 124/63 mmHg ECG Resting ECG: Atrial Fibrillation Clinical Reason for Termination: Completed protocol Nurse Comments Recieved pt. from [facility]. A/Ox4 on RA. Connected to environmental monitoring specialist, VS stable. PIV flushes well. Reviewed POC. Pt. verbalized understanding of procedure including risks and side ef fects, agrees for stress testing. Lexiscan stress test performed per protocol. [facility] tech administered Cardiolite. Pt. tolerated well . Pt. stable, no change on exam. VS returned to baseline. Transferred to [facility] via wheelchair w/ te ch. Stress ECG Conclusion ecg shows afib with IVCD severe chf ef 38% dilated LV cavity inferior infarct with steven infarct ischemia noted in the inferior wall NM EXAM: Myocardial Perfusion REST/STRESS Imaging Protocol: Rest Tc-99m/Stress Tc-99m 1 day Resting Data Rest SPECT myocardial perfusion imaging was performed in supine position 60 minutes following the int ravenous injection of 13.6 mCi of Tc-99m Sestamibi. Time of rest injection: 1130 Date: 05/04/2024 Time of rest imagin Date: 05/04/2024 Administration Route: IV Administration Site: Left Arm Pharmacologic Stress Pharmacologic stress test was performed by injecting Regadenoson 0.4 mg IV push followed by the intra venous injection of 31.4 mCi of Tc-99m Sestamibi. Time of stress injection: 1240 Date: 05/04/2024 Time of stress imagin Date: 05/04/2024 Administration Route: IV Administration Site: Left Arm Gated Stress SPECT was performed 60 minutes after stress injection. The images were gated to evaluate regional wall motion and calculate left ventricular ejection fracti on. Stress only was performed in the Supine position. Nuclear Conclusion Nuclear Findings: positive for ischemia ecg shows afib with IVCD severe chf ef 38% dilated LV cavity inferior infarct with steven infarct ischemia noted in the inferior wall
== END | disposition home or self-care (01) ==
LOC: XYW 10:48
PROVIDERS: ATTEND Internal Medicine
DX: I25.9 Chronic ischemic heart disease, unspecified (principal); I48.91 Unspecified atrial fibrillation; R07.9 Chest pain, unspecified; I11.0 Hypertensive heart disease with heart failure; I50.22 Chronic systolic (congestive) heart failure; E11.65 Type 2 diabetes mellitus with hyperglycemia; E78.5 Hyperlipidemia, unspecified; I48.0 Paroxysmal atrial fibrillation; R06.02 Shortness of breath; E66.01 Morbid (severe) obesity due to excess calories; Z68.43 Body mass index [BMI] 50.0-59.9, adult; Z95.2 Presence of prosthetic heart valve
CPT/HCPCS: 78452; 93017

== ENCOUNTER → 2024-05-12 | Outpatient (CLI) | payer MEDICARE ==
[2024-05-12 07:12] LABS: Chloride 105 mmol/L (98-107); Potassium 4.3 mmol/L (3.5-5.1); Sodium 143 mmol/L (136-145)
[2024-05-12 07:13] LABS: Anion Gap 8 (5-15); Carbon Dioxide 30 mmol/L (20-31)
[2024-05-12 07:18] LABS: BUN/Creatinine Ratio 22.8 (10.0-20.0)
[2024-05-12 07:22] LABS: Blood Urea Nitrogen 28 mg/dL (9-23); Glucose 119 mg/dL (74-106)
== END | disposition home or self-care (01) ==
LOC: LAB 06:47
PROVIDERS: ATTEND Internal Medicine
DX: I10 Essential (primary) hypertension (principal); R60.0 Localized edema; E11.65 Type 2 diabetes mellitus with hyperglycemia
CPT/HCPCS: 36415; 80048